=== PATIENT | female | born 2000 | race Hispanic/Latino ===

== ENCOUNTER 2020-02-17 13:45 | Emergency (ER) | payer OTHER ==
[2020-02-17 15:00] LABS: Urine Blood TRACE (NEG); Urine Glucose NEGATIVE (NEG); Urine Protein NEGATIVE (NEG)
[2020-02-17 15:01] LABS: Absolute Lymphocytes (CBC) 1.9 K/uL (0.7-4.9); Basophils % 0.7 % (0-1.3); Hematocrit 39.7 % (36.0-45.0); Lymphocytes % 23.3 % (15.3-44.8); MPV 10.5 fL (7.6-11.3)
[2020-02-17 15:07] LABS: Urine Bacteria NONE SEEN /HPF (<20); Urine Culture Reflex Order NOT NEEDED; Urine RBC <5 /HPF (NONE SEEN)
[2020-02-17 15:31] LABS: BUN Blood Urea Nitrogen 7 mg/dL (7-18); Bicarbonate 24 mmol/L (21-32); Glucose Level 103 mg/dL (74-106); HCG, Quantitative 37031 mIU/mL (1-3); Potassium 3.5 mmol/L (3.5-5.1); Sodium Level 137 mmol/L (136-145)
--- NOTE | 2020-02-17 15:45 | RAD REPORT ---
EXAM DESCRIPTION: US - Transvaginal OB - 02/17/2020 3:26 pm CLINICAL HISTORY: ABD CRAMPING, COMPARISON: No comparisons FINDINGS: Normal sized uterus is present with no myometrial masses. Normal shaped intrauterine gesta tional sac is present with yolk sac and pole. Heart rate is 106 BPM. Gestational sac and crown- rump length measurements yield a 6 week 1 day age. Calculated ROSA MARIA is 10/11/2020. A 15 millimeter sized subchorionic hemorrhage is seen along the inferior margin. This is not regarded as significant at this current size. No blood or fluid in the cul de sac. Cervical canal is closed. Ovaries and adnexa are identified and normal in appearance. IMPRESSION: Single 6 week 1 day IUP with an ROSA MARIA of 10/11/2020. Heart rate is 106 BPM. A 15 millimeter subchorionic hemorrhage is present not regarded as significant . No ovarian or adnexal abnormality.
--- NOTE | 2020-02-17 15:59 | EDPHYS ---
Physician Documentation [facility] Name: Jamar Reece Age: 19 yrs Sex: Female : 2000 Arrival Date: 02/17/2020 Time: 13:48 Bed 13 Private MD: Stefan Carreno B ED Physician Sunny Zhao HPI: 02/16 15:09 This 19 yrs old Female presents to ER via Ambulatory with complaints of kb Vaginal Bleeding, + Preg <12wks. 15:09 The patient presents to the emergency department with vaginal bleeding, described as kb spotting. The estimated gestational age is 6 weeks. course: care: private OB physician, Dr. Carreno, Leakage of Fluid: none appreciated, Ultrasound: the patient has not had an ultrasound, Risk/complications: no obvious risks or complications are appreciated. Previous pregnancies: the patient has never been . Associated signs and symptoms: Pertinent positives: vaginal bleeding, Pertinent negatives: abdominal pain, chest pain, diarrhea, dysuria, fever, frequency, nausea, ruptured membranes, seizure, shortness of breath, vaginal discharge. The patient has not experienced similar symptoms in the past. The patient has been recently seen by a physician: Dr. Carreno last week for first OB appt. 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 - Social history:: Smoking status: Patient denies any tobacco usage or history of. ROS: 15:08 Constitutional: Negative for fever, chills, and weight loss, Cardiovascular: Negative kb for chest pain, palpitations, and edema, Respiratory: Negative for shortness of breath, cough, wheezing, and pleuritic chest pain, Abdomen/GI: Negative for abdominal pain, nausea, vomiting, diarrhea, and constipation, Back: Negative for injury and pain, MS/Extremity: Negative for injury and deformity, Skin: Negative for injury, rash, and discoloration, Neuro: Negative for headache, weakness, numbness, tingling, and seizure. 15:08 : Positive for vaginal bleeding. Exam: 15:08 Constitutional: This is a well developed, well nourished patient who is awake, alert, kb and in no acute distress. Head/Face: Normocephalic, atraumatic. Chest/axilla: Normal chest wall appearance and motion. Nontender with no deformity. No lesions are appreciated. Cardiovascular: Regular rate and rhythm with a normal S1 and S2. No gallops, murmurs, or rubs. Normal PMI, no JVD. No pulse deficits. Respiratory: Lungs have equal breath sounds bilaterally, clear to auscultation and percussion. No rales, rhonchi or wheezes noted. No increased work of breathing, no retractions or nasal flaring. Abdomen/GI: Soft, non-tender, with normal bowel sounds. No distension or tympany. No guarding or rebound. No evidence of tenderness throughout. Skin: Warm, dry with normal turgor. Normal color with no rashes, no lesions, and no evidence of cellulitis. MS/ Extremity: Pulses equal, no cyanosis. Neurovascular intact. Full, normal range of motion. Neuro: Awake and alert, GCS 15, oriented to person, place, time, and situation. Cranial nerves II-XII grossly intact. Motor strength 5/5 in all extremities. Sensory grossly intact. Cerebellar exam normal. Normal gait. Vital Signs: 14:09 BP 125 / 85; Pulse 109; Resp 19 S; Temp 97.2(TE); Pulse Ox 100% on R/A; Weight 45.36 kg ca1 (R); Height 5 ft. 0 in. (152.40 cm) (R); Pain 0/10; 15:28 BP 103 / 68; Pulse 83; Resp 17 S; Pulse Ox 100% on R/A; jd3 14:09 Body Mass Index 19.53 (45.36 kg, 152.40 cm) ca1 MDM: 14:18 Patient medically screened. kb 15:08 Data reviewed: vital signs, nurses notes. Data interpreted: Pulse oximetry: on room air kb is 100 %. Interpretation: normal. 15:57 Counseling: I had a detailed discussion with the patient and/or guardian regarding: the kb historical points, exam findings, and any diagnostic results supporting the discharge/admit diagnosis, lab results, radiology results, the need for outpatient follow up, an OB/Gyne specialist, to return to the emergency department if symptoms worsen or persist or if there are any questions or concerns that arise at home. 02/16 14:35 Order name: Quantitative Hcg; Complete Time: 15:32 kb 02/16 14:35 Order name: Abo/rh Typing; Complete Time: 15:31 kb 02/16 14:35 Order name: Basic Metabolic Panel; Complete Time: 15:32 kb 02/16 14:35 Order name: CBC with Diff; Complete Time: 15:06 kb 02/16 14:35 Order name: Urine Microscopic Only; Complete Time: 15:08 kb 02/16 14:45 Order name: Urine Dipstick--Ancillary (enter results); Complete Time: 15:01 aa5 02/16 13:49 Order name: Urine Test (obtain specimen); Complete Time: 14:27 kb 02/16 13:49 Order name: Urine Dipstick-Ancillary (obtain specimen); Complete Time: 14:27 kb 02/16 14:35 Order name: IV Saline Lock; Complete Time: 14:52 kb 02/16 14:35 Order name: Labs collected and sent; Complete Time: 14:52 kb 02/16 14:35 Order name: NPO; Complete Time: 14:36 kb 02/16 14:35 Order name: US Transvaginal Ob; Complete Time: 15:52 kb 02/16 14:45 Order name: Urine --Ancillary (enter results); Complete Time: 15:01 aa5 Administered Medications: No medications were administered Disposition: 16:49 Co-signature as Attending Physician, Sunny Zhao MD. rn Disposition: 02/17/20 15:58 Discharged to Home. Impression: Threatened . - Condition is Stable. - Discharge Instructions: Vaginal Bleeding During , First Trimester, Subchorionic Hematoma, Threatened Miscarriage, [id number], Pelvic Rest. - Medication Reconciliation Form, Thank You Letter, Antibiotic Education, Prescription Opioid Use form. - Follow up: Emergency Department; When: As needed; Reason: Worsening of condition. Follow up: Stefan Carreno MD; When: 2 - 3 days; Reason: Recheck today's complaints, Continuance of care, Re-evaluation by your physician. Signatures: Dispatcher [employer] ED Radha Cavanaugh, RN SECURITY-C RN SECURITY-Ckb Sunny Zhao MD MD rn Davies, Jonathon, RN RN jd3 Charito Aguila RN RN ca1 Corrections: (The following items were deleted from the chart) 16:05 15:58 02/17/2020 15:58 Discharged to Home. Impression: Threatened . Condition jd3 is Stable. Forms are Medication Reconciliation Form, Thank You Letter, Antibiotic Education, Prescription Opioid Use. Follow up: Emergency Department; When: As needed; Reason: Worsening of condition. Follow up: Stefan Carreno; When: 2 - 3 days; Reason: Recheck today's complaints, Continuance of care, Re-evaluation by your physician. kb
--- NOTE | 2020-02-17 15:59 | ER ---
Nurse's Notes [facility] Name: Jamar Reece Age: 19 yrs Sex: Female : 2000 Arrival Date: 02/17/2020 Time: 13:48 Bed 13 Private MD: Stefan Carreno B Diagnosis: Threatened Presentation: 02/16 14:09 Chief complaint: Patient states: x 6 wks. Spotting started this morning. ca1 Denies cramping. Mother states, "she's all complaining of a yeast infection". Coronavirus screen: Client denies travel out of the [place] in the last 14 days. At this time, the client does not indicate any symptoms associated with coronavirus-19. Ebola Screen: Patient negative for fever greater than or equal to 101.5 degrees Fahrenheit, and additional compatible Ebola Virus Disease symptoms Patient denies exposure to infectious person. Patient denies travel to an Ebola-affected area in the 21 days before illness onset. No symptoms or risks identified at this time. Initial Sepsis Screen: Does the patient meet any 2 criteria? No. Patient's initial sepsis screen is negative. Does the patient have a suspected source of infection? No. Patient's initial sepsis screen is negative. Risk Assessment: Do you want to hurt yourself or someone else? Patient reports no desire to harm self or others. Onset of symptoms was February 17, 2020. 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 - Social history:: Smoking status: Patient denies any tobacco usage or history of. Screenin:31 Abuse screen: Denies threats or abuse. Nutritional screening: No deficits noted. jd3 Tuberculosis screening: No symptoms or risk factors identified. Fall Risk Ambulatory Aid- None/Bed Rest/Nurse Assist (0 pts). Gait- Normal/Bed Rest/Wheelchair (0 pts) Mental Status- Oriented to own ability (0 pts). Total Tellez Fall Scale indicates No Risk (0-24 pts). Assessment: 14:29 Obstetrical Assessment: General assessment: awake and alert, skin warm and dry. jd3 General: Appears in no apparent distress. uncomfortable, Behavior is calm, cooperative, appropriate for age. Pain: Complains of pain in suprapubic area Quality of pain is described as aching. Neuro: Level of Consciousness is awake, alert, obeys commands, Oriented to person, place, time, situation. Cardiovascular: Denies chest pain, Capillary refill < 3 seconds Patient's skin is warm and dry. Respiratory: Airway is patent Respiratory effort is even, unlabored, Respiratory pattern is regular, symmetrical, Denies cough, shortness of breath. GI: Reports nausea, Patient currently denies abdominal pain, diarrhea, vomiting. : Reports urinary frequency, spotting Denies burning with urination. EENT: No signs and/or symptoms were reported regarding the EENT system. Derm: Skin is intact, Skin is dry, Skin is normal, Skin temperature is warm. Musculoskeletal: Circulation, motion, and sensation intact. Range of motion: intact in all extremities. 15:27 Reassessment: Patient appears in no apparent distress at this time. No changes from jd3 previously documented assessment. Patient and/or family updated on plan of care and expected duration. Pain level reassessed. Patient is alert, oriented x 3, equal unlabored respirations, skin warm/dry/pink. 16:05 Reassessment: Patient appears in no apparent distress at this time. Patient and/or jd3 family updated on plan of care and expected duration. Pain level reassessed. Patient is alert, oriented x 3, equal unlabored respirations, skin warm/dry/pink. Vital Signs: 14:09 BP 125 / 85; Pulse 109; Resp 19 S; Temp 97.2(TE); Pulse Ox 100% on R/A; Weight 45.36 kg ca1 (R); Height 5 ft. 0 in. (152.40 cm) (R); Pain 0/10; 15:28 BP 103 / 68; Pulse 83; Resp 17 S; Pulse Ox 100% on R/A; jd3 14:09 Body Mass Index 19.53 (45.36 kg, 152.40 cm) ca1 ED Course: 13:48 Patient arrived in ED. as 13:48 Stefan Carreno MD is Private Physician. as 13:49 Radha Cavanaugh FNP-C is [facility]. kb 13:49 Sunny Zhao MD is Attending Physician. kb 14:11 Triage completed. ca1 14:12 Arm band placed on right wrist. ca1 14:20 Fransisco Heath, RN is Primary Nurse. jd3 14:31 Patient has correct armband on for positive identification. Bed in low position. Call jd3 light in reach. Side rails up X 1. Adult w/ patient. Pulse ox on. NIBP on. 14:38 Radiology exam delayed due to test not completed at this time. aa4 14:56 Inserted saline lock: 20 gauge in right antecubital area, using aseptic technique. jd3 Blood collected. 15:27 US Transvaginal Ob In Process Unspecified. EDMS 15:58 Stefan Carreno MD is Referral Physician. kb 16:04 No provider procedures requiring assistance completed. IV discontinued, intact, jd3 bleeding controlled, No redness/swelling at site. Pressure dressing applied. Administered Medications: No medications were administered Outcome: 15:58 Discharge ordered by . kb 16:05 Discharged to home ambulatory, with family. jd3 16:05 Condition: stable 16:05 Discharge instructions given to patient, family, Instructed on discharge instructions, follow up and referral plans. Demonstrated understanding of instructions, follow-up care. 16:05 Patient left the ED. jd3 Signatures: Dispatcher [employer] EDNE Radha Cavanaugh FNP-C FNP-Ckb Martinez, Amelia as Frazier, Amanda aa4 Fransisco Heath, RN RN jCharito Hopkins RN RN ca1
[2020-02-17 17:37] VITALS: TEMP 97.2; O2SAT 100
[2020-02-17 17:38] VITALS: BP 103/68
== END 2020-02-17 16:05 | disposition home or self-care (01) ==
LOC: ER 13:45
DX: O20.0 Threatened abortion (principal); Z3A.01 Less than 8 weeks gestation of pregnancy
CPT/HCPCS: 36415; 76817; 80048; 81003; 81015; 81025; 84702; 85025; 86900; 86901; 99284

== ENCOUNTER 2020-02-18 15:38 | Emergency (ER) | payer OTHER ==
--- NOTE | 2020-02-18 16:07 | ER ---
Nurse's Notes [facility] Name: Jamar Reece Age: 19 yrs Sex: Female : 2000 Arrival Date: 02/18/2020 Time: 15:41 Bed Waiting Private MD: Diagnosis: Presentation: 02/17 16:03 Chief complaint: Patient states: 6 weeks . Vaginal bleeding has gotten worse ll1 for past two days. Saw here yesterday, bleeding has gotten worse today. Coronavirus screen: Client denies travel out of the [place] in the last 14 days. At this time, the client does not indicate any symptoms associated with coronavirus-19. Ebola Screen: Patient denies travel to an Ebola-affected area in the 21 days before illness onset. Initial Sepsis Screen: Does the patient meet any 2 criteria? HR > 90 bpm. No. Patient's initial sepsis screen is negative. Does the patient have a suspected source of infection? Yes: Other: r/o miscarriage. Risk Assessment: Do you want to hurt yourself or someone else? Patient reports no desire to harm self or others. Onset of symptoms was February 17, 2020. 16:03 Method Of Arrival: Ambulatory ll1 16:03 Acuity: MORGAN 3 ll1 Historical: - Allergies: 16:06 No Known Allergies; ll1 - PSHx: 16:06 None; ll1 - Social history:: Smoking status: Patient denies any tobacco usage or history of. Vital Signs: 16:03 BP 135 / 78; Pulse 104; Resp 16; Temp 98.3; Pulse Ox 99% ; Pain 0/10; ll1 ED Course: 15:41 Patient arrived in ED. mr 16:06 Triage completed. ll1 16:06 Arm band placed on. ll1 Administered Medications: No medications were administered Outcome: 16:06 Patient left the ED. ll1 Signatures: Delaney Jerome Lynsay, RN RN ll1
[2020-02-18 18:44] VITALS: BP 135/78; TEMP 98.3; O2SAT 99
== END 2020-02-18 16:06 | disposition left against medical advice (07) ==
LOC: ER 15:38
DX: Z53.21 Procedure and treatment not carried out due to patient leaving prior to being seen by health care provider (principal)
CPT/HCPCS: 99281

== ENCOUNTER 2020-02-18 17:01 | Emergency (ER) | payer OTHER ==
--- OUTSIDE RECORDS SUMMARY | 2020-02-18 17:03 | XMS REPORT | Continuity of Care Document ---
:2000 Author Organization [facility] t Address [facility] [place] [id number] Care Team Providers Name Role Phone Unavailable Unavailable Unavailable Problems This patient has no known problems. Allergies, Adverse Reactions, Alerts This patient has no known allergies or adverse reactions. Medications This patient has no known medications. Procedures This patient has no known procedures. Results This patient has no known results.
[2020-02-18 20:24] LABS: Absolute Lymphocytes (CBC) 1.9 K/uL (0.7-4.9); Basophils % 0.3 % (0-1.3); Lymphocytes % 21.8 % (15.3-44.8); MPV 10.9 fL (7.6-11.3); RBC Red Blood Cell Count 4.29 M/uL (3.86-4.86)
[2020-02-18 21:00] LABS: BUN Blood Urea Nitrogen 8 mg/dL (7-18); Bicarbonate 26 mmol/L (21-32); Glucose Level 128 mg/dL (74-106); HCG, Quantitative 45880 mIU/mL (1-3); Potassium 3.4 mmol/L (3.5-5.1); Sodium Level 138 mmol/L (136-145)
[2020-02-18 21:14] LABS: Urine Blood 3+ (NEG); Urine Glucose 1+ (NEG); Urine Protein NEGATIVE (NEG)
--- NOTE | 2020-02-18 21:28 | EDPHYS ---
Physician Documentation [facility] Name: Jamar Reece Age: 19 yrs Sex: Female : 2000 Arrival Date: 02/18/2020 Time: 17:04 Bed 25 Private MD: ED Physician Brett Escalante HPI: 02/17 19:59 This 19 yrs old Female presents to ER via Ambulatory with complaints of pm1 Vaginal Bleeding, + Preg <12wks. 19:59 The patient presents to the emergency department with vaginal bleeding, with tissue. pm1 The estimated gestational age is 6 weeks. course: care: private OB physician, Dr. Carreno, the patient's last check was February 18, 2020, Risk/complications: no obvious risks or complications are appreciated. Previous pregnancies: the patient has never been . Associated signs and symptoms: Pertinent negatives: abdominal pain, chest pain, dysuria, fever, shortness of breath. The patient has been recently seen by a physician: with similar presenting complaints, and apparently given a diagnosis of Threatened miscarriage. Patient was seen in the ER yesterday, had IUP ultrasound and lab work. Patient followed up with Dr. Carreno this morning for the same complaint. They are presenting here today due to concern that the transvaginal ultrasound may have increased her vaginal bleeding. They also want to have tissue sample that is at home analyzed by pathology to determine if she has had a miscarriage. They want to bring it to the ER for analysis. Yesterday's imaging showed IUP ultrasound 6 weeks 1 day. 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 - Social history:: Smoking status: Patient denies any tobacco usage or history of. ROS: 19:59 Constitutional: Negative for fever, chills, and weight loss, Cardiovascular: Negative pm1 for chest pain, palpitations, and edema, Respiratory: Negative for shortness of breath, cough, wheezing, and pleuritic chest pain, Abdomen/GI: Negative for abdominal pain, nausea, vomiting, diarrhea, and constipation. 19:59 Skin: Negative for injury, rash, and discoloration, Neuro: Negative for headache, weakness, numbness, tingling, and seizure. 19:59 : Positive for vaginal bleeding, Negative for urinary symptoms. Exam: 19:59 Constitutional: This is a well developed, well nourished patient who is awake, alert, pm1 and in no acute distress. Head/Face: Normocephalic, atraumatic. 19:59 Back: No spinal tenderness. No costovertebral tenderness. Full range of motion. Skin: Warm, dry with normal turgor. Normal color with no rashes, no lesions, and no evidence of cellulitis. MS/ Extremity: Pulses equal, no cyanosis. Neurovascular intact. Full, normal range of motion. 19:59 Cardiovascular: Exam negative for acute changes, Rate: normal, Rhythm: regular, Pulses: no pulse deficits are appreciated. 19:59 Respiratory: Exam negative for acute changes, respiratory distress, shortness of breath. 19:59 Abdomen/GI: Exam negative for acute changes, Inspection: abdomen appears normal, Palpation: abdomen is soft and non-tender, in all quadrants. 19:59 Neuro: Exam negative for acute changes, Orientation: is normal, Mentation: is normal, Motor: is normal, moves all fours. Vital Signs: 17:07 BP 128 / 77; Pulse 95; Resp 16; Temp 98.0; Pulse Ox 100% ; Weight 45.36 kg; Height 4 ll1 ft. 11 in. (149.86 cm); Pain 0/10; 19:15 BP 135 / 77; Pulse 98; Resp 16 S; Pulse Ox 100% on R/A; ca1 20:15 BP 127 / 64; Pulse 98; Resp 16 S; Pulse Ox 100% on R/A; ca1 21:10 BP 110 / 64; Pulse 89; Resp 16 S; Pulse Ox 100% on R/A; ca1 17:07 Body Mass Index 20.20 (45.36 kg, 149.86 cm) ll1 MDM: 19:11 Patient medically screened. sharad 21:26 Data reviewed: vital signs. Data interpreted: Pulse oximetry: on room air is 100 %. pm1 Interpretation: normal. Counseling: I had a detailed discussion with the patient and/or guardian regarding: the historical points, exam findings, and any diagnostic results supporting the discharge/admit diagnosis, lab results, the need for outpatient follow up, an OB/Gyne specialist, repeat 48 hour beta hcg, to return to the emergency department if symptoms worsen or persist or if there are any questions or concerns that arise at home. 02/17 19:21 Order name: Quantitative Hcg; Complete Time: 21:05 pm1 02/17 19:21 Order name: Basic Metabolic Panel; Complete Time: 21:05 pm1 02/17 19:21 Order name: CBC with Diff; Complete Time: 20:45 pm1 02/17 19:21 Order name: IV Saline Lock; Complete Time: 20:45 pm1 02/17 19:59 Order name: Urine Dipstick--Ancillary (enter results); Complete Time: 21:15 mt 02/17 19:59 Order name: Urine --Ancillary (enter results); Complete Time: 21:15 mt 02/17 19:21 Order name: Labs collected and sent; Complete Time: 20:45 pm1 02/17 19:21 Order name: Urine Dipstick-Ancillary (obtain specimen); Complete Time: 20:46 pm1 02/17 21:45 [place] [facility] [place]: Send sample to pathology; Complete Time: 21:46 pm1 Administered Medications: No medications were administered Disposition: 02/18 08:30 Co-signature as Attending Physician, Brett Escalante MD I agree with the assessment and [facility] plan of care. Disposition: 02/18/20 21:28 Discharged to Home. Impression: Threatened . - Condition is Stable. - Discharge Instructions: Threatened Miscarriage, Pelvic Rest. - Work release form, Medication Reconciliation Form, Thank You Letter, Antibiotic Education, Prescription Opioid Use form. - Follow up: Emergency Department; When: As needed; Reason: Worsening of condition. Follow up: Stefan Carreno MD; When: 2 - 3 days; Reason: Recheck today's complaints, Continuance of care, Re-evaluation by your physician. - Problem is new. - Symptoms have improved. Signatures: Dispatcher [employer] EDBrett Ku MD MD cha Marinas, Patrick, FIREFIGHTER FIREFIGHTER pm1 Charito Aguila RN RN ca1 Devon Bonilla RN RN ll1 Corrections: (The following items were deleted from the chart) 02/17 22:01 21:28 02/18/2020 21:28 Discharged to Home. Impression: Threatened . Condition ca1 is Stable. Forms are Medication Reconciliation Form, Thank You Letter, Antibiotic Education, Prescription Opioid Use. Follow up: Emergency Department; When: As needed; Reason: Worsening of condition. Follow up: Stefan Carreno; When: 2 - 3 days; Reason: Recheck today's complaints, Continuance of care, Re-evaluation by your physician. Problem is new. Symptoms have improved. pm1
--- NOTE | 2020-02-18 21:28 | ER ---
Nurse's Notes [facility] Name: Jamar Reece Age: 19 yrs Sex: Female : 2000 Arrival Date: 02/18/2020 Time: 17:04 Bed 25 Private MD: Diagnosis: Threatened Presentation: 02/17 17:07 Chief complaint: Patient states: 6 weeks . G1, P0. Saw Dr. Kay today, and had ll1 pelvic exam. Bleeding got worse with clots after exam. Denies pain. Coronavirus screen: Client denies travel out of the [place] in the last 14 days. At this time, the client does not indicate any symptoms associated with coronavirus-19. Ebola Screen: Patient denies travel to an Ebola-affected area in the 21 days before illness onset. Initial Sepsis Screen: Does the patient meet any 2 criteria? HR > 90 bpm. No. Patient's initial sepsis screen is negative. Does the patient have a suspected source of infection? Yes: Other: vag bleeding. Risk Assessment: Do you want to hurt yourself or someone else? Patient reports no desire to harm self or others. Onset of symptoms was February 16, 2020. 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 - Social history:: Smoking status: Patient denies any tobacco usage or history of. Screenin:15 Abuse screen: Denies threats or abuse. Denies injuries from another. Nutritional ca1 screening: No deficits noted. Tuberculosis screening: No symptoms or risk factors identified. Fall Risk IV access (20 points). Assessment: 19:15 General: Appears in no apparent distress. comfortable, Behavior is calm, cooperative, ca1 appropriate for age. Pain: Denies pain. Neuro: Level of Consciousness is awake, alert, obeys commands, Oriented to person, place, time, situation. Cardiovascular: Heart tones S1 S2 present Capillary refill < 3 seconds Patient's skin is warm and dry. Respiratory: Airway is patent Respiratory effort is even, unlabored, Respiratory pattern is regular, symmetrical, Breath sounds are clear bilaterally. GI: Abdomen is flat, non-distended, Bowel sounds present X 4 quads. Abd is soft and non tender X 4 quads. : No signs and/or symptoms were reported regarding the genitourinary system. Urine is clear. EENT: No signs and/or symptoms were reported regarding the EENT system. Derm: Skin is intact, is healthy with good turgor, Skin is pink, warm \T\ dry. Musculoskeletal: Circulation, motion, and sensation intact. Capillary refill < 3 seconds. 20:15 Reassessment: Patient appears in no apparent distress at this time. Patient and/or ca1 family updated on plan of care and expected duration. Pain level reassessed. Patient is alert, oriented x 3, equal unlabored respirations, skin warm/dry/pink. 21:10 Reassessment: Patient appears in no apparent distress at this time. Patient and/or ca1 family updated on plan of care and expected duration. Pain level reassessed. Patient is alert, oriented x 3, equal unlabored respirations, skin warm/dry/pink. 22:00 Reassessment: Patient appears in no apparent distress at this time. Patient is alert, ca1 oriented x 3, equal unlabored respirations, skin warm/dry/pink. Specimen sent to the lab. Vital Signs: 17:07 BP 128 / 77; Pulse 95; Resp 16; Temp 98.0; Pulse Ox 100% ; Weight 45.36 kg; Height 4 ll1 ft. 11 in. (149.86 cm); Pain 0/10; 19:15 BP 135 / 77; Pulse 98; Resp 16 S; Pulse Ox 100% on R/A; ca1 20:15 BP 127 / 64; Pulse 98; Resp 16 S; Pulse Ox 100% on R/A; ca1 21:10 BP 110 / 64; Pulse 89; Resp 16 S; Pulse Ox 100% on R/A; ca1 17:07 Body Mass Index 20.20 (45.36 kg, 149.86 cm) ll1 ED Course: 17:04 Patient arrived in ED. mr 17:09 Triage completed. ll1 17:09 Arm band placed on. ll1 18:57 Charito Aguila, AUBREY is Primary Nurse. ca1 18:57 Cesar Jarrell NP is PHCP. pm1 18:57 Sunny Zhao MD is Attending Physician. pm1 19:11 Attending Physician role handed off by Sunny Zhao MD [facility] 19:11 Brett Escalante MD is Attending Physician. [facility] 19:15 Patient has correct armband on for positive identification. Placed in gown. Bed in low ca1 position. Call light in reach. Side rails up X 1. Pulse ox on. NIBP on. Warm blanket given. 19:30 Inserted saline lock: 20 gauge in right antecubital area, using aseptic technique. ca1 ,using aseptic technique. by AUBREY Ba Blood collected. 19:30 No provider procedures requiring assistance completed. ca1 21:27 Stefan Carreno MD is Referral Physician. pm1 21:45 IV discontinued, intact, bleeding controlled, No redness/swelling at site. Pressure ca1 dressing applied. Administered Medications: No medications were administered Outcome: 21:28 Discharge ordered by . pm1 22:01 Discharged to home ambulatory, with family. ca1 22:01 Condition: stable 22:01 Discharge instructions given to patient, family, Instructed on discharge instructions, follow up and referral plans. Demonstrated understanding of instructions, follow-up care. 22:01 Patient left the ED. ca1 Signatures: Brett Escalante MD MD cha Rivera, Mary mr MajoCesar quintero, RESIDENTIAL GLAZIER RESIDENTIAL GLAZIER pm1 Charito Aguila RN RN ca1 Devon Bonilla RN RN ll1
[2020-02-19 05:01] VITALS: TEMP 98; O2SAT 100
[2020-02-19 05:12] VITALS: BP 110/64
== END 2020-02-18 22:01 | disposition home or self-care (01) ==
LOC: ER 17:01
DX: O20.0 Threatened abortion (principal); Z3A.01 Less than 8 weeks gestation of pregnancy
CPT/HCPCS: 36415; 80048; 81003; 81025; 84702; 85025; 88305; 99284

== ENCOUNTER 2020-05-09 08:04 | Emergency (ER) | payer OTHER ==
--- OUTSIDE RECORDS SUMMARY | 2020-05-09 08:14 | XMS REPORT | Continuity of Care Document ---
:2000 Author Organization [facility] Address [facility] [place] [id number] Care Team Providers Name Role Phone Unavailable Unavailable Unavailable Problems This patient has no known problems. Allergies, Adverse Reactions, Alerts This patient has no known allergies or adverse reactions. Medications This patient has no known medications. Procedures This patient has no known procedures. Results This patient has no known results.
--- NOTE | 2020-05-09 08:45 | ER ---
Nurse's Notes [facility] Name: Jamar Reece Age: 19 yrs Sex: Female : 2000 Arrival Date: 05/09/2020 Time: 08:06 Bed Waiting [facility] MD: Diagnosis: ED Course: 05/09 08:06 Patient arrived in ED. as 08:44 Chelsey Gu, RN is Primary Nurse. iw Administered Medications: No medications were administered Outcome: 08:44 Eloped from waiting room. iw 08:45 Patient left the ED. iw Signatures: Mallory Lopez as Chelsey Gu, RN RN iw
== END 2020-05-09 08:45 | disposition left against medical advice (07) ==
LOC: ER 08:04
DX: Z02.9 Encounter for administrative examinations, unspecified (principal)

== ENCOUNTER 2020-05-21 21:41 | Emergency (ER) | payer BC, OTHER ==
[2020-05-22 02:13] LABS: Absolute Lymphocytes (CBC) 2.1 K/uL (0.7-4.9); Basophils % 0.4 % (0-1.3); Hematocrit 33.5 % (36.0-45.0); Lymphocytes % 18.5 % (15.3-44.8); MPV 9.6 fL (7.6-11.3); Protime INR 0.93; RBC Red Blood Cell Count 3.58 M/uL (3.86-4.86)
[2020-05-22 02:19] LABS: Barbiturates NEGATIVE (NEGATIVE); Benzodiazepines NEGATIVE (NEGATIVE); Cocaine NEGATIVE (NEGATIVE); METHAMPHETAM NEGATIVE (NEGATIVE); Methadone NEGATIVE (NEGATIVE); Opiates NEGATIVE (NEGATIVE); Phencyclidine NEGATIVE (NEGATIVE); THC Cannibis NEGATIVE (NEGATIVE)
[2020-05-22 02:22] LABS: Urine Blood NEGATIVE (NEG); Urine Glucose NEGATIVE (NEG); Urine Protein NEGATIVE (NEG); Urine Specific Gravity 1.025 (1.005-1.030)
[2020-05-22 02:36] LABS: ALT/SGPT 76 U/L (12-78); AST/SGOT 40 U/L (15-37); Albumin 3.4 g/dL (3.4-5.0); Alkaline Phosphatase 63 U/L (45-117); BUN Blood Urea Nitrogen 6 mg/dL (7-18); Bicarbonate 23 mmol/L (21-32); Bilirubin Direct < 0.1 mg/dL (0-0.2); Bilirubin Total 0.4 mg/dL (0.2-1.0); Glucose Level 75 mg/dL (74-106); Potassium 3.7 mmol/L (3.5-5.1); Sodium Level 139 mmol/L (136-145)
--- NOTE | 2020-05-22 05:08 | ER ---
Nurse's Notes [facility] Name: Jamar Reece Age: 19 yrs Sex: Female : 2000 Arrival Date: 05/21/2020 Time: 21:42 Bed 26 Private MD: Diagnosis: Suicidal ideations; related conditions, unspecified, second trimester Presentation: 05/21 21:47 Chief complaint: Patient states: Suicidal thoughts off/on about every 2 weeks. No ll1 specific plan. 5 months now. Angers easily, fights with boyfriend. Coronavirus screen: Client denies travel out of the [place] in the last 14 days. At this time, the client does not indicate any symptoms associated with coronavirus-19. Ebola Screen: Patient denies travel to an Ebola-affected area in the 21 days before illness onset. Initial Sepsis Screen: Does the patient meet any 2 criteria? No. Patient's initial sepsis screen is negative. Does the patient have a suspected source of infection? No. Patient's initial sepsis screen is negative. Risk Assessment: Do you want to hurt yourself or someone else? Patient reports no desire to harm self or others. Onset of symptoms was May 07, 2020. 21:47 Method Of Arrival: Ambulatory ll1 21:47 Acuity: MORGAN 2 ll1 Historical: - Allergies: 21:51 No Known Allergies; ll1 - PMHx: 21:51 None; ll1 - PSHx: 21:51 None; ll1 - Immunization history:: Flu vaccine is up to date. - Social history:: Smoking status: Patient denies any tobacco usage or history of. - Family history:: not pertinent. - Hospitalizations: : No recent hospitalization is reported. Screenin/18 01:20 Abuse screen: Denies threats or abuse. Nutritional screening: No deficits noted. em Tuberculosis screening: No symptoms or risk factors identified. Fall Risk None identified. Assessment: 01:20 General: Appears in no apparent distress. comfortable, Behavior is calm, cooperative, em appropriate for age. Pain: Denies pain. Neuro: Level of Consciousness is awake, alert, obeys commands, Oriented to person, place, time, situation, Appropriate for age. Cardiovascular: Capillary refill < 3 seconds Patient's skin is warm and dry. Respiratory: Airway is patent Respiratory effort is even, unlabored, Respiratory pattern is regular, symmetrical. GI: Patient currently denies nausea. : Denies discharge, vaginal bleeding. Derm: Skin is intact, is healthy with good turgor, Skin is pink, warm \\T\\ dry. Musculoskeletal: Capillary refill < 3 seconds, Range of motion: intact in all extremities. 03:00 Reassessment: Patient appears in no apparent distress at this time. Patient and/or em family updated on plan of care and expected duration. Pain level reassessed. Patient is alert, oriented x 3, equal unlabored respirations, skin warm/dry/pink. 07:33 Reassessment: Nurse to nurse given to Antonia from [facility]. ea Psych: 01:20 [place] Suicide Severity Screening: In the past month, have you wished you were em or wished you could go to sleep and not wake up? Patient responds "No." "In the past month, have you actually had any thoughts of killing yourself?" Patient responds "no." "In your lifetime, have you ever done anything, started to do anything, or prepared to do anything to end your life?" Patient responds "yes." Patient reports suicidal intent occurred greater than 3 months prior. Subjective: Patient's mood is sad. Objective: Patient is cooperative, Speech is normal, Affect is appropriate. Interventions: Removed personal items and placed in bag. Patient placed in hospital gown. Searched person for dangerous items. Urine collected and sent for urine drug test. Suicide Risk Assessment: Sad Person Scale: Sex of patient: Female: Score 0 points. Age of patient: Score 1 point if patient 15-34. Depression: Score 1 point if signs of depression are present. Previous Attempt: Score 0 point if patient has not previously attempted suicide. Substance Abuse: Score 0 point if patient does not abuse alcohol or drugs. Rational Thinking: Score 0 point if patient has rational thinking. Social Support: Score 0 if social support is present/available. Organized Plan: Score 0 if patient did not have an organized plan in place. Relationship: TOTAL POINTS: If total points are 0-2, proposed clinical action is to send home with follow-up. Safety Checks: Personal items have been removed. Visitors are present. Pt denies substance abuse. Commitment: Patient will be a voluntary commitment. Vital Signs: 05/21 21:47 BP 119 / 68; Pulse 98; Resp 17; Temp 98.4; Pulse Ox 100% ; Weight 47.63 kg; Height 4 ll1 ft. 11 in. (149.86 cm); Pain 0/10; 21:47 Body Mass Index 21.21 (47.63 kg, 149.86 cm) ll1 ED Course: 21:42 Patient arrived in ED. cl3 21:50 Triage completed. ll1 21:51 Arm band placed on. 1 05/22 00:28 Sunny Zhao MD is Attending Physician. rn 00:37 Sarbjit Small, RN is Primary Nurse. em 01:20 Patient has correct armband on for positive identification. Placed in gown. Bed in low em position. Call light in reach. Adult w/ patient. 01:30 Initial lab(s) drawn, by me, sent to lab. Inserted saline lock: 20 gauge in right em antecubital area, using aseptic technique. Blood collected. 02:46 contacted [facility] Crisis line spoke to [facility] to have a screener evaluate patient. 2 07:18 Attending Physician role handed off by Sunny Zhao MD [facility] 07:18 Brett Escalante MD is Attending Physician. [facility] 07:25 Primary Nurse role handed off by Sarbjit Small, RN em1 08:[address] [facility] [address] Bedolla called for conference. em1 08:12 Kathy Amaya, RN is Primary Nurse. ph 08:13 [facility] calls for nurse to nurse conference. em1 09:08 Acceptance secured at [facility]. Pt accepted by Dr. Bedolla; Administrative approval em1 by German Negro. Administered Medications: No medications were administered Outcome: 05:07 ER care complete, transfer ordered by . rn 10:14 Patient left the ED. ph Signatures: Brett Escalante MD MD cha Munoz, Edgar, RN RN Sunny Zhao MD MD rn Martinez, Eric em1 Kathy Amaya, AUBREY BURGOS Tiffany Arroyo RN RN ea [place], MyKena mw2 Juanita Bonilla cl3 Devon Bonilla RN RN 1
--- NOTE | 2020-05-22 05:08 | EDPHYS ---
Physician Documentation [facility] Name: Jamar Reece Age: 19 yrs Sex: Female : 2000 Arrival Date: 05/21/2020 Time: 21:42 Bed 26 Private MD: BRENDA Physician Brett Escalante HPI: 05/22 00:53 This 19 yrs old Female presents to ER via Ambulatory with complaints of rn mobile Problem. 00:53 The patient presents to the emergency department with anxiety, depression, suicide rn ideation. The patient presents to the emergency department with suicide ideation, but the patient has no formulated plan. Onset: The symptoms/episode began/occurred at an unknown time. Associated signs and symptoms: Pertinent positives; depression, suicide ideation, Pertinent negatives: fever, hallucinations, homicidal ideation, substance abuse. Severity of symptoms: At their worst the symptoms were moderate in the emergency department the symptoms have improved. The patient has experienced similar episodes in the past. The patient has not recently seen a physician. Reports having intermittent thoughts of harming herself, told boyfriend "doesn't want to be here", no plan, no previous attempt. No drug or ETOH use. Came before but was worried that might take baby away so left prior to being seen. . Historical: - Allergies: 05/21 21:51 No Known Allergies; ll1 - PMHx: 21:51 None; ll1 - PSHx: 21:51 None; ll1 - Immunization history:: Flu vaccine is up to date. - Social history:: Smoking status: Patient denies any tobacco usage or history of. - Family history:: not pertinent. - Hospitalizations: : No recent hospitalization is reported. ROS: 05/22 00:53 Constitutional: Negative for fever, chills, and weight loss, Neck: Negative for injury, rn pain, and swelling, Cardiovascular: Negative for chest pain, palpitations, and edema, Respiratory: Negative for shortness of breath, cough, wheezing, and pleuritic chest pain, Abdomen/GI: Negative for abdominal pain, nausea, vomiting, diarrhea, and constipation, Back: Negative for injury and pain, : Negative for injury, bleeding, discharge, and swelling, MS/Extremity: Negative for injury and deformity, Skin: Negative for injury, rash, and discoloration, Neuro: Negative for headache, weakness, numbness, tingling, and seizure. Exam: 00:53 Constitutional: This is a well developed, well nourished patient who is awake, alert, rn and in no acute distress, ambulatory to room, emotional Head/Face: Normocephalic, atraumatic. Eyes: Pupils equal round and reactive to light, extra-ocular motions intact. Lids and lashes normal. Conjunctiva and sclera are non-icteric and not injected. Cornea within normal limits. Periorbital areas with no swelling, redness, or edema. Cardiovascular: Regular rate and rhythm. No pulse deficits. Respiratory: No increased work of breathing, no retractions or nasal flaring. MS/ Extremity: Pulses equal, no cyanosis. Neuro: Awake and alert, GCS 15 Psych: Awake, alert, with orientation to person, place and time. Emotional, tearful. Vital Signs: 05/21 21:47 BP 119 / 68; Pulse 98; Resp 17; Temp 98.4; Pulse Ox 100% ; Weight 47.63 kg; Height 4 ll1 ft. 11 in. (149.86 cm); Pain 0/10; 21:47 Body Mass Index 21.21 (47.63 kg, 149.86 cm) ll1 MDM: 05/22 00:28 Patient medically screened. rn 03:21 ED course: contacting [facility] for evaluation.. rn 04:35 ED course: Evaluated by [facility] who recommends inpatient psychiatric transfer, told rn screener that has plan to drive into a wall to kill herself, gets "blackout mad", previous attempt of taking pills. Will initiate transfer. . 05:06 Differential diagnosis: depression, suicidal ideation. Data reviewed: vital signs, rn nurses notes, lab test result(s), and as a result, I will admit patient. Counseling: I had a detailed discussion with the patient and/or guardian regarding: the historical points, exam findings, and any diagnostic results supporting the discharge/admit diagnosis, radiology results, the need to transfer to another facility, [facility] does not immediately have the required specialist. ED course: U/S has been requested for clearance for psychiatric transfer. . 08:06 Data interpreted: cardiac monitor: rate is 98 beats/min, rhythm is. Physician sharad consultation:. Other consultation: dr olson at [facility]. 05/22 00:53 Order name: Acetaminophen; Complete Time: 02:39 05/22 00:53 Order name: Basic Metabolic Panel; Complete Time: 02:39 rn 05/22 00:53 Order name: CBC with Diff; Complete Time: 02:39 rn 05/22 00:53 Order name: ETOH Level; Complete Time: 02:39 rn 05/22 00:53 Order name: Hepatic Function; Complete Time: 02:39 05/22 00:53 Order name: PT-INR; Complete Time: 02:39 05/22 00:53 Order name: Ptt, Activated; Complete Time: 02:39 rn 05/22 00:53 Order name: Salicylate; Complete Time: 02:39 rn 05/22 00:53 Order name: Urine Drug Screen; Complete Time: 02:39 05/22 02:14 Order name: Urine Dipstick--Ancillary (enter results); Complete Time: 02:39 [facility] 05/22 02:14 Order name: Urine --Ancillary (enter results); Complete Time: 02:39 [facility] 05/22 04:29 Order name: COVID-19 : Document "Date of Symptom Onset" if Symptomatic. rn 05/22 06:37 Order name: SARS-COV-2 RT PCR; Complete Time: 07:18 EDGA 05/22 00:53 Order name: Urine Test (obtain specimen); Complete Time: 01:48 05/22 00:53 Order name: EKG; Complete Time: 00:54 05/22 00:53 Order name: EKG - Nurse/Tech; Complete Time: 01:15 05/22 00:53 Order name: IV Saline Lock; Complete Time: 01:48 05/22 00:53 Order name: Labs collected and sent; Complete Time: 01:48 05/22 00:53 Order name: Urine Dipstick-Ancillary (obtain specimen); Complete Time: 01:48 05/22 08:12 Order name: Diet Regular; Complete Time: 08:13 ph Administered Medications: No medications were administered Disposition: 05/22/20 05:07 Transfer ordered to [facility]. Diagnosis are Suicidal ideations, related conditions, unspecified, second trimester. - Reason for transfer: Higher level of care. - Accepting physician is Dr.Chang [facility]. - Condition is Stable. - Problem is an ongoing problem. - Symptoms have improved. Signatures: Dispatcher [employer] EDGA Brett Escalante MD MD cha Nieto, Roman, MD MD rn Hall, Patricia, RN RN Devon Burris RN RN ll1 Corrections: (The following items were deleted from the chart) 05:50 04:30 CORONAVIRUS ordered. EDMS EDMS 06:46 05:09 OB [employer]+US.RAD.BRZ ordered. EDGA EDMS 08:06 05:07 05/22/2020 05:07 Transfer ordered to Psych Facility. Diagnosis is Suicidal sharad ideations. Reason for transfer: Higher level of care. Accepting physician is . Condition is Stable. Problem is an ongoing problem. Symptoms have improved. rn 10:14 08:06 05/22/2020 05:07 Transfer ordered to Psych Facility. Diagnosis is Suicidal ph ideations; related conditions, unspecified, second trimester. Reason for transfer: Higher level of care. Accepting physician is zohra Lucas. Condition is Stable. Problem is an ongoing problem. Symptoms have improved. sharad
[2020-05-22 10:19] VITALS: BP 119/68; TEMP 98.4; O2SAT 100
== END 2020-05-22 10:14 ==
LOC: ER 21:41
DX: O99.342 Other mental disorders complicating pregnancy, second trimester (principal); F32.9 Major depressive disorder, single episode, unspecified; Z20.822 Contact with and (suspected) exposure to COVID-19; Z3A.00 Weeks of gestation of pregnancy not specified
CPT/HCPCS: 85025; 80048; 36415; 80320; 80329 ×2; 81025; 85610; 80076; 80307 ×8; 85730; 81003; 99284; U0003

== ENCOUNTER 2020-09-29 06:39 | Inpatient (IN) | payer BC, OTHER ==
--- OUTSIDE RECORDS SUMMARY | 2020-09-29 07:28 | XMS REPORT | Continuity of Care Document ---
:2000 Author Organization [facility] t Address [address] [place] [address] Care Team Providers Name Role Phone Unavailable Unavailable Unavailable Payers Payer Name Policy Type Policy Number Effective Date Expiration Date S ource Problems This patient has no known problems. Allergies, Adverse Reactions, Alerts Allergy Allergy Status Severity Reaction(s) Onset Inactive Treating Comm ents Source Name Type Date Date Clinician No Known DA Active U [facility] [place] Medications This patient has no known medications. Procedures This patient has no known procedures. Results Test Description Test Time Test Comments Results Result Comments Source DRUGS OF ABUSE SCREEN 2020-06-17 22:52:00 Test Item Value Reference Range Interpretation Comme nts UR COCAINE (test code = COCAU) NEGATIVE NEGATIVE DETECTION CUT OFF: 150 ng/mL UR CANNABINOIDS (test code = CANU) NEGATIVE NEGATIVE DETECTION CUT OFF: 50 ng/mL UR AMPHETAMINE (test code = AMPHU) NEGATIVE NEGATIVE DETECTION CUT OFF: 500 ng/mL UR BARBITURATE QUAL (test code = NEGATIVE NEGATIVE DETECTION CUT OFF: 200 ng/mL BARBQLU) UR BENZODIAZEPINE (test code = NEGATIVE NEGATIVE DETECTION CUT OFF: 150 ng/mL BENZU) UR OPIATES QUAL (test code = NEGATIVE NEGATIVE DETECTION CUT OFF: 100 ng/mL OPIAQLU) UR PHENCYCLIDINE (PCP) (test code = NEGATIVE NEGATIVE DETECTION CUT OFF: 25 ng/mL PHENCU)
[2020-09-29] MEDS ORDERED: PENICILLIN 5 MU in NA CHLORIDE 0.9% 100 ML IV ONE (07:35)
[2020-09-29] MEDS ORDERED: Ringers Lactate 1,000 ML IV PRN (07:43)
[2020-09-29] MEDS ORDERED: MEPERIDINE HCL 25 MG/ML SYR IV PRN (07:43)
[2020-09-29] MEDS ORDERED: METHYLERGONOVINE 0.2MG/ML AMP IM PRN (07:43)
[2020-09-29] MEDS ORDERED: MIDAZOLAM HCL 2 MG/2 ML INJ IV PRN (07:43)
[2020-09-29] MEDS ORDERED: BUTORPHANOL 1 MG/ML INJ IV PRN (07:43)
[2020-09-29] MEDS ORDERED: CARBOPROST TROME 250 MCG/ML IM PRN (07:43)
[2020-09-29] MEDS ORDERED: PROMETHAZINE INJ 25 MG/ML AMP IM PRN (07:43)
[2020-09-29] MEDS ORDERED: OXYTOCIN/LR 20 UNIT/1,000 ML BAG IV SCH ×3 (08:00→16:00)
[2020-09-29] MEDS ORDERED: Ringers Lactate 1,000 ML IV SCH (08:00)
--- NOTE | 2020-09-29 08:13 | PREOPHP ---
Date of Admission: 09/29/2020 History Of Present Illness: Jamar Reece is a 20-year-old primigravida, 38 weeks 3 days, comes in act kat labor, was seen earlier this weekend and sent home, returns, is now 5 cm, sin regularly. Baby looks good on the monitor. Vital signs are all stable. She is Rh positive, immune to Rubella. Positive strep status. Family History: Grandmother with hypertension and uncle with diabetes. Otherwise noncontributory. Past Surgical History: The patient has had no previous surgery. Allergies: SHE IS NOT ALLERGIC TO ANY MEDICINES. Social History: She does not smoke. Physical Examination: HEENT: Clear. Pupils equal, round, and reactive to light and accommodation. Conjunctivae well perf used. No oral, lingual, or buccal lesions. Chest and Lungs: Clear. Heart: Without murmurs, thrills, heaves, or rubs. Breasts: Without masses on previous visits. Abdomen: Term size. Extremities: Clear. Pelvic: As stated. Assessment And Plan: We will admit. Membranes are still intact. We will wait until either membrane s spontaneously rupture or wait at least an hour after the penicillin before we attempt membrane rupt ure. Full labor talk given. The patient is doing quite well right now. May choose to get an epidural lat er. THONG/MAGGI Voice ID: [id number]
[2020-09-29 08:43] LABS: Urine Appearance CLEAR (Clear); Urine Bilirubin NEGATIVE (Negative); Urine Blood TRACE (Negative); Urine Color YELLOW (Yellow); Urine Glucose NEGATIVE (Negative); Urine Microscopic Reflex ORDER UMIC; Urine Protein NEGATIVE (Negative); Urine Urobilinogen 0.2 mg/dL (0.2-1.0)
[2020-09-29] MEDS ORDERED: BUPIVACAINE 0.25% PF 10 ML VIAL IJ PRN (08:49)
[2020-09-29] MEDS ORDERED: ROPIVACAINE HCL 0.2% 20ML AMP IV ONE (08:49)
[2020-09-29] MEDS ORDERED: FENTANYL CITR 100 MCG/2 ML IV ONE (08:49)
[2020-09-29 08:53] LABS: Urine Bacteria <20 /HPF (<20); Urine RBC NONE SEEN /HPF (NONE SEEN)
[2020-09-29] MEDS ORDERED: ROPIVACAINE HCL 0.2% 20ML AMP EP ONE (08:53)
[2020-09-29 09:21] LABS: Absolute Lymphocytes (CBC) 1.3 K/uL (0.7-4.9); Basophils % 0.3 % (0-1.3); Hematocrit 36.9 % (36.0-45.0); Lymphocytes % 12.6 % (15.3-44.8); MPV 10.7 fL (7.6-11.3); RBC Red Blood Cell Count 3.77 M/uL (3.86-4.86)
[2020-09-29] MEDS ORDERED: ROPIVACAINE HCL 100 ML EP ONE (09:25)
[2020-09-29 11:16] VITALS: BMI 23.4
[2020-09-29] MEDS ORDERED: PENICILLIN 2.5 MU in NA CHLORIDE 0.9% 100 ML IV SCH (12:00)
[2020-09-29] MEDS ORDERED: LIDOCAINE 1% MPF 30 ML VIAL ONE (14:04)
--- NOTE | 2020-09-29 15:42 | OP ---
Surgeon: Stefan Carreno MD A 20-year-old primigravida 38 weeks 3 days came in labor. Had epidural anesthesia. Second stage of about an hour. Spontaneous vaginal delivery of an estimated 6-pound male, Apgars 9 and 9. Second-de gree laceration repaired. Simulating episiotomy repaired with 2-0 chromic. Through and through lace ration, right labia minora at the apex repaired with 2-0 chromic and 3-0 chromic interrupted sutures. Schultze delivery of the placenta. Estimated blood loss 400 cc or less. The patient is beta strep positive, was given a dose of penicillin during the labor. We will give her another dose now. Tole rated all procedures well. Final Diagnoses: Term intrauterine at 38 weeks 3 days, spontaneous labor, vaginal delivery , epidural anesthesia. Strep prophylaxis. THONG/MAGGI Voice ID: [id number] Report ID: [id number]
--- NOTE | 2020-09-29 15:42 | PN ---
Patient is now basically completely dilated. She is feeling pressure, will begin to push. Baby look s good on the monitor. We have started some light Pitocin. Anticipate delivery relatively soon. THONG/MAGGI Voice ID: [id number] Report ID: [id number]
[2020-09-29] MEDS ORDERED: DIPHENHYDRAMINE 25 MG TAB/CAP PO PRN (15:54)
[2020-09-29] MEDS ORDERED: BISACODYL 10 MG RECTAL SUPP PR PRN (15:54)
[2020-09-29] MEDS ORDERED: DOCUSATE NA/SENNA CONC 1 TAB PO PRN ×2 (15:54→15:55)
[2020-09-29] MEDS ORDERED: IBUPROFEN 200 MG TAB PO PRN ×2 (15:54→15:55)
[2020-09-29] MEDS ORDERED: ACETAMINOPHEN 500 MG TAB PO PRN ×2 (15:54→15:55)
[2020-09-29] MEDS ORDERED: Oxycodone HCl/Acetaminophen 1 TAB TAB PO PRN ×4 (15:54→15:55)
[2020-09-29] MEDS ORDERED: METHYLERGONOVINE 0.2 MG TAB PO PRN (15:55)
[2020-09-29] MEDS ORDERED: BISACODYL 10 MG RECTAL SUPP RECT PRN (15:55)
[2020-09-29 23:36] LABS: RPR (Rapid Plasma Reagin) NON-REACT (NON-REACT)
--- NOTE | 2020-09-30 09:14 | DS ---
This is a 20-year-old primigravida 38 weeks 3 days came in early labor. Subsequently, delivered a 6 pounds 13-ounce male , Apgars 9 and 9. Epidural anesthesia. Through and through laceration, r ight labia minora upper portion and a second-degree laceration just to the patient's left of the intr oitus, sutured with 2-[address] Schultze delivery of the placenta. Estimated blood los s 350 cc. She was strep positive, given 2 doses of penicillin during the. , afebrile, amb ulating, voiding. Lochia is normal. The patient has no complaints or problems. She is not taking a ny analgesics. Will be dismissed later today. To report back to my office in 6 weeks for followup t o report any temperature elevation of 100 degrees or greater, severe pain, heavy bleeding, or any oth er type of abnormalities. Requests no analgesics on dismissal. No post epidural problems. The walter ent has had her Tdap immunization during the . She was rubella immune. Final Diagnoses: Term intrauterine 38 weeks 3 days, spontaneous labor, vaginal delivery, e pidural anesthesia, penicillin prophylaxis. THONG/MAGGI Voice ID: [id number] Report ID: [id number]
--- NOTE | 2020-09-30 11:08 | PN ---
She has her epidural mass, quite comfortable. She is 9 cm, 100% effaced. Rupture of membranes. Ishan ar fluid. Baby is around 0 station. Anticipate rapid progress soon. Rip quite regularly on her own. THONG/MAGGI Voice ID: [id number] Report ID: [id number]
[2020-09-30 16:11] VITALS: BP 111/73; TEMP 98
[2020-10-01 19:20] LABS: HBsAG Nonreactive (Nonreactive)
== END 2020-09-30 17:30 | disposition home or self-care (01) | DRG 807 ==
LOC: L&D 06:39 → 2ND-WC 07:26
PROVIDERS: ADMIT Specialist; ATTEND Specialist
PROC: 10E0XZZ Delivery of Products of Conception, External Approach (ICD-10-PCS; principal; 2020-09-29)
PROC: 0KQM0ZZ Repair Perineum Muscle, Open Approach (ICD-10-PCS; 2020-09-29)
PROC: 10907ZC Drainage of Amniotic Fluid, Therapeutic from Products of Conception, Via Natural or Artificial Opening (ICD-10-PCS; 2020-09-29)
DX: O99.824 Streptococcus B carrier state complicating childbirth (principal); Z37.0 Single live birth; O70.1 Second degree perineal laceration during delivery; Z3A.38 38 weeks gestation of pregnancy; Z20.822 Contact with and (suspected) exposure to COVID-19
CPT/HCPCS: 36415; 81003; 81015; 85025; 86592; 86901; 87340; J2210; J2540; J2590; J2795; J7120; U0003

== ENCOUNTER 2021-04-20 15:29 | Emergency (ER) | payer BC, OTHER ==
--- OUTSIDE RECORDS SUMMARY | 2021-04-20 15:32 | XMS REPORT | Continuity of Care Document ---
:2000 Author Organization [facility] t Address [address] [place] [address] Care Team Providers Name Role Phone Physician, Primary or Family Admitting Clinician Unavailabl e Payers Payer Name Policy Type Policy Number Effective Date Expiration Date S kylee [facility] [id number] 2015 00:00:00 Problems This patient has no known problems. Allergies, Adverse Reactions, Alerts Allergy Allergy Status Severity Reaction(s) Onset Inactive Treating Comm ents Source Name Type Date Date Clinician No Known DA Active [facility] No Known DA Active U 0 [facility] NO KNOWN Drug Active [facility] ALLERGIE Class [facility] Medications This patient has no known medications. Procedures This patient has no known procedures. Encounters Start End Encounter Admission Attending Care Care Encounter Source Date/Time Date/Time Type Type Clinicians Facility Department ID 2021-01-31 Emergency [facility] [id number] [facility] 05:54:24 [facility] 2020-06-17 Inpatient [facility] [id number] [facility] 21:18:00 [id number] [facility] Results Test Description Test Time Test Comments [...]
--- NOTE | 2021-04-20 17:24 | RAD REPORT ---
EXAM DESCRIPTION: US - Transvaginal OB - 04/20/2021 5:15 pm CLINICAL HISTORY: Abd cramping, ;Vaginal bleeding COMPARISON: OB Complete dated 05/14/2020 TECHNIQUE: Transabdominal sonography performed. Patient declined endovaginal examination. FINDINGS: Retroflexed uterus is present normal in size. No myometrial mass. Tri laminar endometrial stripe is present at 17 mm with no gestational sac or sac remnant identified. Trace amount of fluid o r blood seen near the lower uterine segment cervix junction. Both ovaries are identified show normal blood flow within the stroma. No adnexal abnormality seen. IMPRESSION: No intrauterine gestational sac or sac remnant. Trace amount of fluid or old blood seen near the lower uterine segment cervix junction.
[2021-04-20 18:00] LABS: Absolute Lymphocytes (CBC) 2.2 K/uL (0.7-4.9); Hematocrit 44.6 % (36.0-45.0); Lymphocytes % 25.2 % (15.3-44.8); MPV 9.1 fL (7.6-11.3)
[2021-04-20 18:02] LABS: Urine Blood 2+ (Negative); Urine Glucose Negative (Negative); Urine Protein Negative (Negative); Urine Specific Gravity >=1.030 (1.005-1.030)
[2021-04-20 18:20] LABS: Potassium 3.9 mmol/L (3.5-5.1)
[2021-04-20 18:32] LABS: Urine Specific Gravity/Preg >1.030 (1.005-1.030)
--- NOTE | 2021-04-20 18:43 | EDPHYS ---
Physician Documentation [facility] Name: Jamar Worley Age: 20 yrs Sex: Female : 2000 Arrival Date: 04/20/2021 Time: 15:33 Bed 13 Private MD: ED Physician Brett Escalante HPI: 04/20 17:13 This 20 yrs old Female presents to ER via Ambulatory with complaints of kb Vaginal Bleeding, Abdominal Cramping. 17:13 The patient has not recently seen a physician. kb 17:13 The patient presents to the emergency department with abdominal pain, vaginal bleeding, kb that is light. The estimated gestational age is 6 weeks. course: care: private OB physician, Dr. Carreno. Previous pregnancies: in previous pregnancies patient has had. Associated signs and symptoms: Pertinent positives: abdominal pain, vaginal bleeding. The patient has not experienced similar symptoms in the past. Pt reports abd cramping that started last night, light vaginal bleeding that started this morning. states she doesn't have cramps anymore, but has some pain to right pelvis. 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 - Social history:: Smoking status: Reported history of juuling and/or vaping. ROS: 17:11 Constitutional: Negative for fever, chills, and weight loss. kb 17:11 Abdomen/GI: Positive for abdominal cramps, Negative for nausea, vomiting, and diarrhea. 17:11 : Positive for vaginal bleeding. 17:11 All other systems are negative. Exam: 17:12 Constitutional: This is a well developed, well nourished patient who is awake, alert, kb and in no acute distress. Head/Face: Normocephalic, atraumatic. ENT: Moist Mucous membranes Cardiovascular: Regular rate and rhythm with a normal S1 and S2. No gallops, murmurs, or rubs. No pulse deficits. Respiratory: Respirations even and unlabored. No increased work of breathing. Talking in full sentences Abdomen/GI: Soft, non-tender. No distention Skin: Warm, dry with normal turgor. Normal color. MS/ Extremity: Pulses equal, no cyanosis. Neurovascular intact. Full, normal range of motion. Neuro: Awake and alert, GCS 15, oriented to person, place, time, and situation. Moves all extremities. Normal gait. Psych: Awake, alert, with orientation to person, place and time. Behavior, mood, and affect are within normal limits. Vital Signs: 16:29 BP 137 / 84; Pulse 88; Resp 16; Temp 97.9; Pulse Ox 100% ; Weight 42.64 kg; Height 4 vg1 ft. 11 in. (149.86 cm); Pain 4/10; 16:29 Body Mass Index 18.99 (42.64 kg, 149.86 cm) vg1 MDM: 16:32 Patient medically screened. kb 17:12 Data reviewed: vital signs, nurses notes. Data interpreted: Pulse oximetry: on room air kb is 100 %. Interpretation: normal. 18:43 Counseling: I had a detailed discussion with the patient and/or guardian regarding: the kb historical points, exam findings, and any diagnostic results supporting the discharge/admit diagnosis, lab results, radiology results, the need for outpatient follow up, an OB/Gyne specialist, to return to the emergency department if symptoms worsen or persist or if there are any questions or concerns that arise at home. 04/20 16:32 Order name: Abo/rh Typing; Complete Time: 19:04 kb 04/20 16:32 Order name: Basic Metabolic Panel; Complete Time: 18:21 kb 04/20 16:32 Order name: CBC with Diff; Complete Time: 18:08 kb 04/20 16:32 Order name: Quantitative Hcg; Complete Time: 18:21 kb 04/20 18:02 Order name: Urine Dipstick-Ancillary; Complete Time: 18:08 EDMS 04/20 18:05 Order name: Urine --Ancillary (enter results); Complete Time: 18:39 bd 04/20 16:32 Order name: IV Saline Lock; Complete Time: 17:52 kb 04/20 16:32 Order name: Labs collected and sent; Complete Time: 17:52 kb 04/20 16:32 Order name: NPO; Complete Time: 17:52 kb 04/20 16:32 Order name: Urine Dipstick-Ancillary (obtain specimen); Complete Time: 18:17 kb 04/20 16:32 Order name: Urine Test (obtain specimen); Complete Time: 18:17 kb 04/20 16:32 Order name: US Transvaginal Ob; Complete Time: 17:32 kb Administered Medications: No medications were administered Disposition: 04/21 07:49 Co-signature as Attending Physician, Brett Escalante MD I agree with the assessment and sharad plan of care. Disposition Summary: 04/20/21 18:43 Discharge Ordered Location: Home kb Condition: Stable kb Diagnosis - Threatened kb Followup: kb - With: Emergency Department - When: As needed - Reason: Worsening of condition Followup: kb - With: Private Physician - When: 2 - 3 days - Reason: Recheck today's complaints, Continuance of care, Re-evaluation by your physician Discharge Instructions: - Discharge Summary Sheet kb - Threatened Miscarriage, [id number] kb - Vaginal Bleeding During , First Trimester, [id number] kb Forms: - Medication Reconciliation Form kb - Thank You Letter kb - Antibiotic Education kb - Prescription Opioid Use kb Signatures: Dispatcher [employer] Radha Rodriges, INSTANT POTATO PROCESSOR-C INSTANT POTATO PROCESSOR-Brett Hoff MD MD cha Garcia, Victoria, RN RN vg1
--- NOTE | 2021-04-20 18:43 | ER ---
Nurse's Notes [facility] Name: Jamar Worley Age: 20 yrs Sex: Female : 2000 Arrival Date: 04/20/2021 Time: 15:33 Bed 13 Private MD: Diagnosis: Threatened Presentation: 04/20 16:29 Chief complaint: Patient states: pt is approximately 6 weeks , states 'light vg1 bleeding' that is 'pink/red/brownish' in color with 'small clots'. States RLQ pain. Coronavirus screen: Vaccine status: Patient reports being unvaccinated. Client denies travel out of the [place] in the last 14 days. Ebola Screen: Patient negative for fever greater than or equal to 101.5 degrees Fahrenheit, and additional compatible Ebola Virus Disease symptoms. Initial Sepsis Screen: Does the patient meet any 2 criteria? No. Patient's initial sepsis screen is negative. Does the patient have a suspected source of infection? No. Patient's initial sepsis screen is negative. Risk Assessment: Do you want to hurt yourself or someone else? Patient reports no desire to harm self or others. Onset of symptoms was April 19, 2021. 16:29 Method Of Arrival: Ambulatory vg1 16:29 Acuity: MORGAN 3 vg1 Triage Assessment: 16:32 General: Appears in no apparent distress. uncomfortable, Behavior is calm. Pain: vg1 Complains of pain in right lower quadrant. : Reports vaginal bleeding that is bright red, with clots, light flow. 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 - Social history:: Smoking status: Reported history of juuling and/or vaping. Screenin:55 Abuse screen: Denies threats or abuse. Denies injuries from another. Nutritional ww screening: No deficits noted. Tuberculosis screening: No symptoms or risk factors identified. Fall Risk None identified. Assessment: 18:55 General: Appears in no apparent distress. comfortable, Behavior is calm, cooperative, ww appropriate for age. Pain: Denies pain. Neuro: Level of Consciousness is awake, alert, obeys commands, Oriented to person, place, time, situation. Cardiovascular: No deficits noted. Denies chest pain, shortness of breath. Respiratory: No deficits noted. Airway is patent Respiratory effort is even, unlabored, Respiratory pattern is regular, symmetrical. GI: No deficits noted. No signs and/or symptoms were reported involving the gastrointestinal system. : Urine is clear, Reports vaginal bleeding that is with clots. EENT: No deficits noted. No signs and/or symptoms were reported regarding the EENT system. Derm: No deficits noted. No signs and/or symptoms reported regarding the dermatologic system. Skin is intact, is healthy with good turgor, Skin is pink, warm \T\ dry. Musculoskeletal: No deficits noted. No signs and/or symptoms reported regarding the musculoskeletal system. Circulation, motion, and sensation intact. Vital Signs: 16:29 BP 137 / 84; Pulse 88; Resp 16; Temp 97.9; Pulse Ox 100% ; Weight 42.64 kg; Height 4 vg1 ft. 11 in. (149.86 cm); Pain 4/10; 16:29 Body Mass Index 18.99 (42.64 kg, 149.86 cm) vg1 ED Course: 15:33 Patient arrived in ED. ja2 16:01 Radha Cavanaugh FNP-C is [facility]. kb 16:01 Brett Escalante MD is Attending Physician. kb 16:32 Triage completed. vg1 16:32 Arm band placed on. vg1 17:15 Transvaginal Ob In Process Unspecified. EDMS 17:20 Harini Alvarado, RN is Primary Nurse. ww 17:52 Initial lab(s) drawn, by me, sent to lab. Inserted saline lock: 22 gauge in right vg1 antecubital area, using aseptic technique. Blood collected. 18:55 Patient has correct armband on for positive identification. Placed in gown. Bed in low ww position. Call light in reach. Side rails up X 1. Adult w/ patient. 18:55 No provider procedures requiring assistance completed. intact, bleeding controlled, No ww redness/swelling at site. Pressure dressing applied. Administered Medications: No medications were administered Outcome: 18:43 Discharge ordered by . randee 19:12 Discharged to home ambulatory, with family. suresh 19:12 Condition: stable 19:12 Discharge instructions given to patient, family, Instructed on discharge instructions, follow up and referral plans. safe sex practices, safety practices, Demonstrated understanding of instructions, follow-up care. 19:12 Patient left the ED. ww Signatures: Dispatcher [employer] Radha Rodriges, CONSTRUCTION PROJECT COORDINATOR-C EDIE-Minoo Arizmendi, RN RN vg1 Emily Hernandez Whitney, RN RN ww
[2021-04-20 19:26] VITALS: BP 137/84; TEMP 97.9; O2SAT 100
== END 2021-04-20 19:12 | disposition home or self-care (01) ==
LOC: ER 15:29
DX: O20.0 Threatened abortion (principal)
CPT/HCPCS: 36415; 76817; 80048; 81003; 81025; 84702; 85025; 86900; 86901; 99283

== ENCOUNTER 2022-04-16 06:50 | Inpatient (IN) | payer BC, OTHER ==
--- OUTSIDE RECORDS SUMMARY | 2022-04-16 08:00 | XMS REPORT | Continuity of Care Document ---
:2000 Author Organization [facility] t Address [address] [place] [address] Care Team Providers Name Role Phone PCP, PATIENT DOES NOT HAVE A Primary Care Physician Unavaila OLYA Morley Attending Clinician Unavailable OLYA FUNES Attending Clinician Unavailable Wade Torres MD Attending Clinician Marine Patton PA-C Attending Clinician Tati, Jimmy Lab Main Attending Clinician Unavailable WADE TORRES Attending Clinician Unavailable Doctor Unassigned, [place] Attending Clinician Unavailable Physician, No Primary or Family Admitting Clinician Unavaila juan Payers Payer Name Policy Type Policy Number Effective Date Expiration Date Sena [facility] [id number] 2015 00:00:00 Problems Condition Condition Condition Status Onset Resolution Last Treating Co mments Source Name Details Category Date Date Treatment Clinician Date High risk High risk Disease Active Uni vers , , 6 [place] [facility] History of History of Disease Active U nivers anxiety anxiety 09-10 ity of 00:00: [place] [facility] History of History of Disease Active U nivers depression depression 09-10 it y of 00:00: Medical Branch History of History of Disease Active U nivers bipolar bipolar 09-10 ity of disorder disorder 00:00: [place] 00 [facility] Positive Positive Disease Active Unive rs 09-04 ity of test test 00:00: [address] Allergies, Adverse Reactions, Alerts Allergy Allergy Status Severity Reaction(s) Onset Inactive Treating Comm ents Source Name Type Date Date Clinician No Known DA Active [facility] No Known DA Active U [facility] Allergie 3-16 [facility] NO KNOWN Drug Active Univers ALLERGIE Class ity of S [facility] Social History Social Habit Start Date Stop Date Quantity Comments Source ASSERTION 2021-08-05 [facility] 00:00:00 [facility] Alcohol intake 2021-10-23 2021-10-23 Ex-drinker [facility] 00:00:00 00:00:00 (finding) [facility] Exposure to 2021-09-28 2021-10-08 Not sure [facility] SARS-CoV-2 00:00:00 09:55:00 [facility] (event) [place] Tobacco use and 2021-09-04 2021-09-04 Smokeless tobacco Un iversity of exposure 00:00:00 00:00:00 non-user [facility] Sex Assigned At 2000 2000 Universit y of 00:00:00 00:00:00 [facility] Smoking Status Start Date Stop Date Source Never smoked tobacco [facility] Medications Ordered Filled Start Stop Current Ordering Indication Dosage Frequency Signature Comments Components Source Medication Medication Date Date Medication? Clinician (SIG) Name Name Yes Take by Univer s 25/iron 10-23 mouth. ity of fum/folic/d 13:58: [place] 04 Medical (-1 Branch ORAL) miconazole 2021- No [id number] 100mg Insert 1 Univers 100 mg 10-09 Suppositor ity of vaginal 00:00: 04:59 y into [place] suppository 00 :00 vagina at [facility] bedtime Branch for 7 days. miconazole 2021- No [id number] 100mg Insert 1 Univers 100 mg 7-08 07-16 Suppositor ity of vaginal 00:00: 04:59 y into [place] suppository 00 :00 vagina at [facility] bedtime Branch for 7 days. metroNIDAZO 2021- No [id number] 500mg Take 1 Univers LE (FLAGYL) 10-0815 tablet by it y of 500 mg 00:00: 04:59 mouth 2 [place] tablet 00 :00 (two) Medical times Branch daily for 7 days. metroNIDAZO 2021- No [id number] 500mg Take 1 Univers LE (FLAGYL) 10-0815 tablet by it y of 500 mg 00:00: 04:59 mouth 2 [place] tablet 00 :00 (two) Medical times Branch daily for 7 days. metroNIDAZO 2021- No [id number] 500mg Take 1 Univers LE (FLAGYL) 10-0815 tablet by it y of 500 mg 00:00: 04:59 mouth 2 [place] tablet 00 :00 (two) Medical times Branch daily for 7 days. metroNIDAZO 2021- No [id number] 500mg Take 1 Univers LE (FLAGYL) 10-0815 tablet by it y of 500 mg 00:00: 04:59 mouth 2 [place] tablet 00 :00 (two) Medical times Branch daily for 7 days. metroNIDAZO 2021- No [id number] 500mg Take 1 Univers LE (FLAGYL) 10-0815 tablet by it y of 500 mg 00:00: 04:59 mouth 2 [place] tablet 00 :00 (two) Medical times Branch daily for 7 days. metroNIDAZO 2021- No [id number] 500mg Take 1 Univers LE (FLAGYL) 10-0815 tablet by it y of 500 mg 00:00: 04:59 mouth 2 [place] tablet 00 :00 (two) Medical times Branch daily for 7 days. Yes [id number] 1{tbl} Take 1 U nivers vit 6-13 tablet by ity of no.130-iron 00:00: mouth [place] -folic 00 daily. Medical ( Branch VITAMIN) Yes [id number] 1{tbl} Take 1 U nivers vit 6-13 tablet by ity of no.130-iron 00:00: mouth [place] -folic 00 daily. Medical ( Branch VITAMIN) Yes [id number] 1{tbl} Take 1 U nivers vit 6-13 tablet by ity of no.130-iron 00:00: mouth [place] -folic 00 daily. Medical ( Branch VITAMIN) Yes [id number] 1{tbl} Take 1 U nivers vit 6-13 tablet by ity of no.130-iron 00:00: mouth [place] -folic 00 daily. Medical ( Branch VITAMIN) Yes [id number] 1{tbl} Take 1 U nivers vit 6-13 tablet by ity of no.130-iron 00:00: mouth [place] -folic 00 daily. Medical ( Branch VITAMIN) Yes [id number] 1{tbl} Take 1 U nivers vit 6-13 tablet by ity of no.130-iron 00:00: mouth [place] -folic 00 daily. Medical ( Branch VITAMIN) Yes [id number] 1{tbl} Take 1 U nivers vit 6-13 tablet by ity of no.130-iron 00:00: mouth [place] -folic 00 daily. Medical ( Branch VITAMIN) Yes [id number] 1{tbl} Take 1 U nivers vit 6-13 tablet by ity of no.130-iron 00:00: mouth [place] -folic 00 daily. Medical ( Branch VITAMIN) Yes Take by Univer s 25/iron 6-09 mouth. ity of fum/folic/d 09:17: [place] [id number] Medical (-1 Branch ORAL) Yes Take by Univer s 25/iron 6-09 mouth. ity of fum/folic/d 09:17: [place] [id number] Medical (-1 Branch ORAL) Yes Take by Univer s 25/iron 6-09 mouth. ity of fum/folic/d 09:17: [place] [address] Medical (-1 Branch ORAL) Yes Take by Univer s 25/iron 6-09 mouth. ity of fum/folic/d 09:17: [place] [address] Medical (-1 Branch ORAL) Yes Take by Univer s 25/iron 6-09 mouth. ity of fum/folic/d 09:17: [place] [address] Medical (-1 Branch ORAL) Yes Take by Univer s 25/iron 6-09 mouth. ity of fum/folic/d 09:17: [place] [address] Medical (-1 Branch ORAL) Yes Take by Univer s 25/iron 6-09 mouth. ity of fum/folic/d 09:17: [place] [address] Medical (-1 Branch ORAL) doxylamine- Yes [id number] 1{tbl} Take 1 Univers pyridoxine, 6-09 tablet by ity of vit B6, 00:00: mouth [place] ([place]) 00 SEE-INSTRU Med ical 10-10 mg CTIONS. Branch per tablet doxylamine- Yes [id number] 1{tbl} Take 1 Univers pyridoxine, 6-09 tablet by ity of vit B6, 00:00: mouth [place] ([place]) 00 SEE-INSTRU Med ical 10-10 mg CTIONS. Branch per tablet doxylamine- Yes [id number] 1{tbl} Take 1 Univers pyridoxine, 6-09 tablet by ity of vit B6, 00:00: mouth [place] ([place]) 00 SEE-INSTRU Med ical 10-10 mg CTIONS. Branch per tablet doxylamine- Yes [id number] 1{tbl} Take 1 Univers pyridoxine, 6-09 tablet by ity of vit B6, 00:00: mouth [place] ([place]) 00 SEE-INSTRU Med ical 10-10 mg CTIONS. Branch per tablet doxylamine- Yes [id number] 1{tbl} Take 1 Univers pyridoxine, 6-09 tablet by ity of vit B6, 00:00: mouth [place] ([place]) 00 SEE-INSTRU Med ical 10-10 mg CTIONS. Branch per tablet doxylamine- Yes [id number] 1{tbl} Take 1 Univers pyridoxine, 6-09 tablet by ity of vit B6, 00:00: mouth [place] ([place]) 00 SEE-INSTRU Med ical 10-10 mg CTIONS. Branch per tablet doxylamine- 2021-0 Yes [id number] 1{tbl} Take 1 Univers pyridoxine, 6-09 tablet by ity of vit B6, 00:00: mouth [place] ([place]) 00 SEE-INSTRU Med ical 10-10 mg CTIONS. Branch per tablet doxylamine- 0 Yes [id number] 1{tbl} Take 1 Univers pyridoxine, 6-09 tablet by ity of vit B6, 00:00: mouth [place] ([place]) 00 SEE-INSTRU Med ical 10-10 mg CTIONS. Branch per tablet Immunizations Ordered Filled Immunization Date Status Comments [facility] e Immunization Name Name HPV Unspecified 2015-09-11 Completed Universit y of 00:00:00 [place] [facility] HPV Unspecified 2015-09-11 Completed Universit y of 00:00:00 [place] [facility] HPV Unspecified 2015-09-11 Completed Universit y of 00:00:00 [place] [facility] HPV Unspecified 2015-09-11 Completed Universit y of 00:00:00 [place] [facility] HPV Unspecified 2015-09-11 Completed Universit y of 00:00:00 [place] [facility] HPV Unspecified 2015-09-11 Completed Universit y of 00:00:00 [place] [facility] HPV Unspecified 2015-09-11 Completed Universit y of 00:00:00 [place] [facility] HPV Unspecified 2015-09-11 Completed Universit y of 00:00:00 [facility] Vital Signs Vital Name Observation Time Observation Value Comments Source Systolic blood 2021-10-08 15:35:00 114 mm[Hg[facility] Diastolic blood 2021-10-08 15:35:00 75 mm[Hg] [facility] Heart rate 2021-10-08 15:35:00 107 /min [facility] Body temperature 2021-10-08 15:35:00 36.94 Y[facility] Respiratory rate 2021-10-08 15:35:00 18 /min [facility] Body height 2021-10-08 15:35:00 149.9 cm [facility] Body weight 2021-10-08 15:35:00 44.815 kg [facility] BMI 2021-10-08 15:35:00 19.96 kg/m2 Universi ty of [facility] Procedures Procedure Date / Time Performed Performing Clinician Sourc e POCT URINALYSIS W/O 2021-10-08 00:00:00 Marine Patton [facility] ty [facility] SPECIFIC GRAVITY [facility] Encounters Start End Encounter Admission Attending Care Care Encounter Source Date/Time Date/Time Type Type Clinicians Facility Department ID 2021-01-31 Emergency [facility] [id number] Univers 05:54:24 ity [facility] 2020-06-17 Inpatient [facility] [id number] [facility] 2021-11-06 2021-11-06 Outpatient R OLYA FUNES [facility] B [id number] Univers 09:30:00 09:30:00 [id number] 2021-11-03 2021-11-03 Outpatient R OLYA FUNES [facility] B [id number] Univers 11:00:00 11:00:00 [id number] 2021-10-26 2021-10-26 Telephone Wade Torres [facility] [id number] Univers 00:00:00 00:00:00 Emerson ECKERT [id number] i ty of [id number] [id number] Nv dic[address] 2021-10-22 2021-10-22 Telephone Wade Torres [facility] [id number] Univers 00:00:00 00:00:00 Emerson ECKERT [id number] i ty [id number] [phone] Nv dical NAL [address] [place] [address] 2021-10-15 2021-10-15 Telephone Abdi [facility] [id number] Univers 00:00:00 00:00:00 Marine ECKERT [id number] i ty of [id number] [id number] Nv dical NAL 134 [facility] 2021-10-09 2021-10-09 Case Reviewer Tati, Adc [facility] Main [place] 1.2.8 [id number] Univers 08:45:00 09:00:00 Visit Wade Torres [id number] [facility] [id number] [id number] Nv dical NAL 353 [facility] 2021-10-09 2021-10-09 Outpatient R MELISSA [facility] [id number] Univers 08:45:00 08:45:00 ity of [facility] 2021-10-09 2021-10-09 Outpatient R MELISSA [facility] [id number] Univers 08:45:00 08:45:00 ity of [facility] 2021-10-09 2021-10-09 Telephone Melissa [facility] [id number] Univers 00:00:00 00:00:00 Emerson ECKERT [id number] i ty [facility] [id number] [id number] Nv dicsd NAL 134 [facility] 2021-10-09 2021-10-09 Case RICHARD Patton [id number] Univers 00:00:00 00:00:00 Management Marine PEDIATRIC [id number] ity [id number] [id number] [place] [address] Branch [facility] 2021-10-08 2021-10-08 Case Reviewer Tati, Adc [facility] Main [place] 1.2.8 40.114 [id number] Univers 11:45:00 12:00:00 Visit Wade Torres [id number] [facility]y [facility] [id number] [id number] Nv dical NAL 353 [facility] 2021-10-08 2021-10-08 Outpatient R MELISSA WADE [facility] [id number] Univers 11:45:00 11:45:00 ity of [facility] 2021-10-08 2021-10-08 Outpatient R WADE TORRES [facility] [id number] Univers 09:45:00 11:27:27 ity of [facility] 2021-10-08 2021-10-08 Routine Wade Torres [place] [id number] Univers 09:45:00 11:27:27 Cam [place] [id number] ity of Visit [place] [id number] [phone] Nv dic[address] 2021-10-08 2021-10-08 Outpatient R WADE TORRES [facility] [id number] Univers 09:45:00 11:27:27 ity of [facility] 2021-10-08 2021-10-08 Orders Doctor LELIA [id number] Univers 00:00:00 00:00:00 Only Unassigned, HARR[place] [id number] ity of [place] [facility] [id number] Isai as [id number] [address] 2021-09-14 2021-09-14 Telephone Wade Torres [facility] [id number] Univers 00:00:00 00:00:00 Cam [place] [id number] i ty of [place] [id number] [id number] Nv dical NAL [address] [place] [address] 2021-09-10 2021-09-10 Outpatient R WADE TORRES [facility] [id number] Univers 08:30:00 09:55:48 ity of [facility] 2021-09-10 2021-09-10 Outpatient R WADE TORRES [facility] [id number] Univers 08:30:00 09:55:48 ity of [facility] 2021-09-10 2021-09-10 Initial Wade Torres [facility] [id number] Univers 08:30:00 09:55:48 Cam [place] [id number] ity of Visit [place] [id number] PROFESS [id number] Nv dical [address] 2021-09-10 2021-09-10 Outpatient R WADE TORRES [facility] [id number] Univers 08:30:00 08:30:00 ity [facility] 2021-09-04 2021-09-04 Outpatient R OLYA FUNES [facility] B [id number] Univers 08:30:00 09:23:29 TRIALBERTOLYA RUIZ jd [facility] 2021-09-04 2021-09-04 Outpatient R OLYA FUNES [facility] B [id number] Univers 08:30:00 09:23:29 OLYA FUNES [facility] 2021-09-04 2021-09-04 Outpatient R OLYA FUNES [facility] B [id number] Univers 08:30:00 09:23:29 SILKEOLYA RUIZ [facility] 2021-09-04 2021-09-04 Office Conchiscassyportillo [facility] [id number] Univers 08:30:00 09:23:29 Visit Olya OBRIEN [id number] it y of WOMEN'S [id number] [facility] [id number] [address] Results Test Description Test Time Test Comments Results Result Comments Source POCT URINALYSIS W/O SPECIFIC GRAVITY 2021-10-08 15:31:00 Test Item Value Reference Range Interpretation Comme nts POCT PH U (test code = 3254) n/a 5-8 POCT U LEUK EST (test code = 3263) n/a Negative - Negative POCT U NIT (test code = 3262) n/a Negative - Negative POCT U PROT (test code = 3259) negative Negative - Negative POCT U GLU (test code = 3256) negative Negative - Negative POCT U KETONE (test code = 3258) n/a Negative - Negative POCT U BLD (test code = 3257) n/a Negative - Negative [facility] [id number] 22:52:00 Test Item Value Reference Range Interpretation Comments UR COCAINE (test code = NEGATIVE NEGATIVE DETE CTION CUT OFF: COCAU) 150 ng/mL UR CANNABINOIDS (test NEGATIVE NEGATIVE DETECT ION CUT OFF: code = CANU) 50 ng/mL UR AMPHETAMINE (test code NEGATIVE NEGATIVE DE TECTION CUT OFF: = AMPHU) 500 ng/mL UR BARBITURATE QUAL (test NEGATIVE NEGATIVE DE TECTION CUT OFF: code = BARBQLU) 200 ng/mL UR BENZODIAZEPINE (test NEGATIVE NEGATIVE DETE CTION CUT OFF: code = BENZU) 150 ng/mL UR OPIATES QUAL (test NEGATIVE NEGATIVE DETECT ION CUT OFF: code = OPIAQLU) 100 ng/mL UR PHENCYCLIDINE (PCP) NEGATIVE NEGATIVE DETEC TION CUT OFF: (test code = PHENCU) 25 ng/m L
[2022-04-16] MEDS ORDERED: BUTORPHANOL 1 MG/ML INJ IV PRN (08:07)
[2022-04-16] MEDS ORDERED: METHYLERGONOVINE 0.2MG/ML AMP IM PRN (08:07)
[2022-04-16] MEDS ORDERED: PROMETHAZINE INJ 25 MG/ML AMP IM PRN (08:07)
[2022-04-16] MEDS ORDERED: Ringers Lactate 1,000 ML IV PRN (08:07)
[2022-04-16] MEDS ORDERED: MEPERIDINE HCL 25 MG/ML SYR IV PRN (08:07)
[2022-04-16] MEDS ORDERED: CARBOPROST TROME 250 MCG/ML IM PRN (08:07)
[2022-04-16] MEDS ORDERED: FENTANYL/BUPIVACAINE/NS/PF 200 MCG/100 ML BAG EP PRN (08:13)
[2022-04-16] MEDS ORDERED: BUPIVACAINE 0.25% PF 10 ML VIAL IJ PRN (08:13)
[2022-04-16] MEDS ORDERED: FENTANYL CITR 100 MCG/2 ML IV ONE (08:13)
[2022-04-16 08:57] VITALS: BMI 24.8
[2022-04-16] MEDS ORDERED: Ringers Lactate 1,000 ML IV SCH (09:00)
[2022-04-16] MEDS ORDERED: OXYTOCIN/LR 20 UNIT/1,000 ML BAG IV SCH (09:00)
[2022-04-16] MEDS ORDERED: LIDOCAINE 1% MPF 30 ML VIAL ONE (09:18)
[2022-04-16 09:36] LABS: Absolute Lymphocytes (CBC) 1.5 K/uL (0.7-4.9); Lymphocytes % 13.2 % (15.3-44.8); MCV 97.6 fL (80-100); MPV 9.6 fL (7.6-11.3)
[2022-04-16 09:43] LABS: Specific Gravity 1.005 (1.005-1.030); Urine Bilirubin NEGATIVE (Negative); Urine Blood Negative (Negative); Urine Clarity Clear (Clear); Urine Color Colorless (Yellow); Urine Glucose NEGATIVE (Negative); Urine Protein NEGATIVE (Negative); Urine Urobilinogen Normal (Normal)
[2022-04-16 10:14] LABS: Hepatitis B surface AG Interp. Nonreactive (Nonreactive)
[2022-04-16 14:59] LABS: SARS-COV-2 RT PCR NEGATIVE (NEGATIVE)
[2022-04-16] MEDS ORDERED: FENTANYL CITR 100 MCG/2 ML ONE (17:36)
[2022-04-16 20:56] LABS: RPR (Rapid Plasma Reagin) NON-REACT (NON-REACT)
[2022-04-16] MEDS ORDERED: Oxycodone HCl/Acetaminophen 1 TAB TAB PO PRN (22:14)
[2022-04-16] MEDS ORDERED: ACETAMINOPHEN 500 MG TAB PO PRN (22:14)
--- NOTE | 2022-04-16 22:43 | DN ---
Date of Procedure: 04/16/2022 Surgeon: Richie Jiménez Covering Physician: Dr. Richie Jiménez is the covering physician for Dr. Carreno. Final Diagnoses: 1.Intrauterine 38 weeks and 4 days of gestation, delivered. 2.Single live female. 3.Spontaneous labor. 4.Normal vaginal delivery. 5.Prior history of right labial minora tear, improperly healed. Indications: Jamar is a 21-year-old female G3, P1 at 38 weeks and 4 days of gestation compl aining of labor since began on the morning of 04/16/2022 with irregular contractions. Denies rupture of membranes or vaginal bleeding. Procedure In Detail: She was admitted in the labor room 4-5 cm with irregular contractions. She lab ored during the next few hours and she received artificial rupture of membrane showing clear fluid. Rupture of membrane time was 1458 hours. She received epidural, regional anesthesia and she was comf ortable. Pitocin was also given for augmentation of labor. Her cervix progressed. Maternal c ondition is stable and she reached complete cervical dilatation at approximately 1800 hours. At that time, she felt a tremendous amount of pressure and had urge to push, however, her vulva began with s wallowing at this time with very poor results with pushing. Therefore, I asked her to rest and let t he baby's head labor down for a while. She rested for almost an hour. At approximately 1700 hours, she was resumed with pushing. At this time, is much better. Her legs were placed up on stirrups. V aginal area prepped and washed by using diluted Betadine solution. Then, she was draped in a sterile fashion. With a midline episiotomy, baby presented WILTON and delivered OA position followed by esteban silva of the baby's nose and mouth with the bulb, delivery of the right shoulder followed by the left shoulder, which is posterior body and delivery completed on 1918 hours. Cord was clamped and cut. B glo passed down to the nursing staff. Cord blood obtained. Placenta delivered intact few minutes la Jamel harding presentation. Aggressive fundal massage was done and the Pitocin infusion begun in the IV. A midline episiotomy showing no extension and that was repaired with 2-0 chromic suture in a con tinuous running fashion. The repair was satisfactory; however, patient requested repair for the righ t labia minora, which was previously torn and healed and lips has a defect of a "V shape i n pattern." Therefore, I used a Rodas scissors to trend the edge of the heel tissue and cut tissue to e nsure a very healthy condition and repairable. Therefore, I placed a 2-0 chromic suture in the inter rupted fashion throughout the anterior lip, followed by the posterior aspect of the lip. The lips re approximated nicely. Patient was well informed prior to the procedure that there was a 50% chance th is may not heal properly. It may be torn again. Patient understood the risk and understood the labi al plasty. The labial plasty was assessed and with a total amount of bleeding of 450 cc. A well bab y girl delivered. scores of 9 and 9. Weight 6 pounds 15 ounces. Mom is Rh positive, O positi ve, was GBS negative. Maternal H and H were stable. BW/MODL Voice ID: [id number] Report ID: [id number]
[2022-04-17 06:24] LABS: Hematocrit 31.8 % (36.0-45.0)
[2022-04-17] MEDS: IBUPROFEN 200 MG TAB PO PRN ×3 (07:18→22:41)
[2022-04-18 10:42] VITALS: BP 110/68; TEMP 97.7
--- NOTE | 2022-04-18 15:11 | DS ---
Date of Discharge: 04/18/2022 Dr. Jiménez, the attending physician covering for Dr. Carreno. Discharge Diagnoses: 1.Intrauterine 38 weeks and 4 days of gestation deliver. 2.Normal vaginal delivery. 3.Single live . 4.Prior history of external genitalia injury from previous childbirth. Procedures Preformed: 1.On 04/16/2022, normal vaginal delivery. 2.Right labia minora labiaplasty. Hospital Course: Jamar Worley is a 21-year-old, G3, P1, female, 38 weeks and 4 days of ge station, due date 04/26/2022, came to the hospital with spontaneous labor. Her labor was augmented a nd also she had artificial rupture of membranes showing clear fluid. She also had an epidural region al anesthesia. Her labor was uncomplicated and she had a normal delivery during the evening, time 19 18 hours. She gave to a female baby with scores of 8 and 9 and weight 6 pounds 15 ounces . With a prior childbirth, she had a right-sided labia minora care where a labiaplasty was done and also repair of the midline episiotomy. Otherwise, was normal and unremarkable. Next day postp artum, she was doing quite well and she was discharged on 04/18, morning, in good and stable conditio ns. Instructions given to her at the bedside. The patient understood. Disposition: Home. Prescription: 1.Tylenol No.3, #20, 1 to 2 tabs p.o. q.4-6 hours p.r.n. for pain, no refills. 2.Ibuprofen 800 mg, #20, 1 tab p.o. t.i.d. p.r.n. for pain, no refills. Diet: The patient may have a regular diet. Followup: Call Dr. Carreno's office, followup 4-6 weeks. Discharged home in good and stable condition. BW/MODL Voice ID: [id number] Report ID: [id number]
== END 2022-04-18 12:15 | disposition home or self-care (01) | DRG 806 ==
LOC: L&D 06:50 → 2ND-WC 07:57
PROVIDERS: ADMIT Obstetrics & Gynecology; ATTEND Obstetrics & Gynecology
PROC: 10E0XZZ Delivery of Products of Conception, External Approach (ICD-10-PCS; principal; 2022-04-16)
PROC: 10907ZC Drainage of Amniotic Fluid, Therapeutic from Products of Conception, Via Natural or Artificial Opening (ICD-10-PCS; 2022-04-16)
PROC: 0W8NXZZ Division of Female Perineum, External Approach (ICD-10-PCS; 2022-04-16)
PROC: 0UQMXZZ Repair Vulva, External Approach (ICD-10-PCS; 2022-04-16)
DX: O70.9 Perineal laceration during delivery, unspecified (principal); O36.0930 Maternal care for other rhesus isoimmunization, third trimester, not applicable or unspecified; Z37.0 Single live birth; Z3A.38 38 weeks gestation of pregnancy; Z20.822 Contact with and (suspected) exposure to COVID-19
CPT/HCPCS: 0241U; 36415; 81003; 85014; 85018; 85025; 86592; 86901; 87340; J2001; J2210; J2590; J3010; J7120

== ENCOUNTER → 2023-03-24 | Emergency (ER) | payer BC, OTHER ==
--- OUTSIDE RECORDS SUMMARY | 2023-03-24 09:21 | XMS REPORT | Continuity of Care Document ---
Author Name Unknown Address [address] [facility] [address] [place] [address] [facility] thconnect Address [address] [facility] [address] [place] [address] Care Team Providers Care Heavy Truck Technician Name Role Phone PCP, PATIENT DOES NOT HAVE A Primary Care Physic Mert Dorsey Attending Clinician Unavailable [email or web address]_S Attending Clinician OLYA Brown Attending Clinician OLYA Brown Attending Clinician Olamide Torres MD, Wade Norman Attending Clinician [phone] Marine Patton PA-C Attending Clinician [phone] Pob, Adc Lab Main Attending Clinician WADE Diaz Attending Clinician Unavailable Doctor Unassigned, Red Bud Attending Clinician U navailable [email or web address]_S Admitting Clinician Olamide martinez Payers Payer Name Policy Type Policy Number Effective Date Expirati on Date Source AETNA O [id number] 2015 00:00:00 [place] [id number] 2021 00:00:00 Problems Condition Name Condition Details Condition Category Status Onset Date Resolution Date Last Treatment Date Treating Clinician Comments Source High risk , antepartum High risk , antepartum Disease Active 09-10 00:00: 00 [facility] History of anxiety History of anxiety Disease Active 09-10 00:00: 00 [facility] History of depression History of depression Disease Active 09-10 00:00: 00 [facility] History of bipolar disorder History of bipolar disorder Disease Active 09-10 00:00: 00 [facility] Positive test Positive test Disease Active 09-04 00:00: 00 [facility] Allergies, Adverse Reactions, Alerts Allergy Name Allergy Type Status Severity Reaction(s) Onset Date Inactive Date Treating Clinician Comments Source NO KNOWN ALLERGIE S Drug Class Active [facility] Social History Social Habit Start Date Stop Date Quantity Comments Source ASSERTION 2021-08-05 00:00:00 [facility] Alcohol intake 2021-10-23 00:00:00 2021-10-23 00:00:00 Ex-drinker (finding) [facility] Exposure to SARS-CoV-2 (event) 2021-09-28 00:00:00 2021-10-08 09:55:00 Not sure [facility] Tobacco use and exposure 2021-09-04 00:00:00 2021-09-04 00:00:00 Smokeless tobacco non-user [facility] Sex Assigned At 2000 00:00:00 2000 00:00:00 [facility] Smoking Status Start Date Stop Date Source Never smoked tobacco [facility] Medications Ordered Medication Name Filled Medication Name Start Date Stop Date Current Medication? Ordering Clinician Indication Dosage Frequency Signature (SIG) Comments Components Source 25/iron fum/folic/d santana (-1 ORAL) 10-23 13:58: 04 Yes Take by mouth. [facility] miconazole 100 mg vaginal suppository 10-09 00:00: 00 10-17 04:59 :00 No [id number] 100mg Insert 1 Suppositor y into vagina at bedtime for 7 days. [facility] miconazole 100 mg vaginal suppository 10-09 00:00: 00 10-17 04:59 :00 No [id number] 100mg Insert 1 Suppositor y into vagina at bedtime for 7 days. [facility] metroNIDAZO LE (FLAGYL) 500 mg tablet 10-08 00:00: 00 10-16 04:59 :00 No [id number] 500mg Take 1 tablet by mouth 2 (two) times daily for 7 days. [facility] metroNIDAZO LE (FLAGYL) 500 mg tablet 10-08 00:00: 00 10-16 04:59 :00 No [id number] 500mg Take 1 tablet by mouth 2 (two) times daily for 7 days. [facility] metroNIDAZO LE (FLAGYL) 500 mg tablet 10-08 00:00: 00 10-16 04:59 :00 No [id number] 500mg Take 1 tablet by mouth 2 (two) times daily for 7 days. [facility] metroNIDAZO LE (FLAGYL) 500 mg tablet 10-08 00:00: 00 10-16 04:59 :00 No [id number] 500mg Take 1 tablet by mouth 2 (two) times daily for 7 days. [facility] metroNIDAZO LE (FLAGYL) 500 mg tablet 10-08 00:00: 00 10-16 04:59 :00 No [id number] 500mg Take 1 tablet by mouth 2 (two) times daily for 7 days. [facility] metroNIDAZO LE (FLAGYL) 500 mg tablet 10-08 00:00: 00 10-16 04:59 :00 No [id number] 500mg Take 1 tablet by mouth 2 (two) times daily for 7 days. [facility] vit no.130-iron -folic ( VITAMIN) 09-14 00:00: 00 Yes [id number] 1{tbl} Take 1 tablet by mouth daily. [facility] vit no.130-iron -folic ( VITAMIN) 09-14 00:00: 00 Yes [id number] 1{tbl} Take 1 tablet by mouth daily. [facility] vit no.130-iron -folic ( VITAMIN) 09-14 00:00: 00 Yes [id number] 1{tbl} Take 1 tablet by mouth daily. [facility] vit no.130-iron -folic ( VITAMIN) 09-14 00:00: 00 Yes [id number] 1{tbl} Take 1 tablet by mouth daily. [facility] vit no.130-iron -folic ( VITAMIN) 09-14 00:00: 00 Yes [id number] 1{tbl} Take 1 tablet by mouth daily. [facility] vit no.130-iron -folic ( VITAMIN) 09-14 00:00: 00 Yes [id number] 1{tbl} Take 1 tablet by mouth daily. [facility] vit no.130-iron -folic ( VITAMIN) 09-14 00:00: 00 Yes [id number] 1{tbl} Take 1 tablet by mouth daily. [facility] vit no.130-iron -folic ( VITAMIN) 09-14 00:00: 00 Yes [id number] 1{tbl} Take 1 tablet by mouth daily. [facility] 25/iron fum/folic/d santana (-1 ORAL) 6 09:17: 47 Yes Take by mouth. [facility] 25/iron fum/folic/d santana (-1 ORAL) 6 09:17: 47 Yes Take by mouth. [facility] 25/iron fum/folic/d santana (-1 ORAL) 6 09:17: 47 Yes Take by mouth. [facility] 25/iron fum/folic/d santana (-1 ORAL) 6 09:17: 47 Yes Take by mouth. [facility] 25/iron fum/folic/d santana (-1 ORAL) 609 09:17: 47 Yes Take by mouth. [facility] 25/iron fum/folic/d santana (-1 ORAL) 09-10 09:17: 47 Yes Take by mouth. [facility] 25/iron fum/folic/d santana (-1 ORAL) 09-10 09:17: 47 Yes Take by mouth. [facility] doxylamine- pyridoxine, vit B6, (DICLEGIS) 10-10 mg per tablet 09-10 00:00: 00 Yes [id number] 1{tbl} Take 1 tablet by mouth SEE-INSTRU CTIONS. [facility] doxylamine- pyridoxine, vit B6, (DICLEGIS) 10-10 mg per tablet 09-10 00:00: 00 Yes [id number] 1{tbl} Take 1 tablet by mouth SEE-INSTRU CTIONS. [facility] doxylamine- pyridoxine, vit B6, (DICLEGIS) 10-10 mg per tablet 09-10 00:00: 00 Yes [id number] 1{tbl} Take 1 tablet by mouth SEE-INSTRU CTIONS. [facility] doxylamine- pyridoxine, vit B6, (DICLEGIS) 10-10 mg per tablet 09-10 00:00: 00 Yes [id number] 1{tbl} Take 1 tablet by mouth SEE-INSTRU CTIONS. [facility] doxylamine- pyridoxine, vit B6, (DICLEGIS) 10-10 mg per tablet 09-10 00:00: 00 Yes [id number] 1{tbl} Take 1 tablet by mouth SEE-INSTRU CTIONS. [facility] doxylamine- pyridoxine, vit B6, (DICLEGIS) 10-10 mg per tablet 09-10 00:00: 00 Yes [id number] 1{tbl} Take 1 tablet by mouth SEE-INSTRU CTIONS. [facility] doxylamine- pyridoxine, vit B6, (DICLEGIS) 10-10 mg per tablet 09-10 00:00: 00 Yes [id number] 1{tbl} Take 1 tablet by mouth SEE-INSTRU CTIONS. [facility] doxylamine- pyridoxine, vit B6, (DICLEGIS) 10-10 mg per tablet 09-10 00:00: 00 Yes [id number] 1{tbl} Take 1 tablet by mouth SEE-INSTRU CTIONS. [facility] Vital Signs Vital Name Observation Time Observation Value Comments Sena pichardo Systolic blood pressure 2021-10-08 15:35:00 114 mm[Hg] [facility] Diastolic blood pressure 2021-10-08 15:35:00 75 mm[Hg] [facility] Heart rate 2021-10-08 15:35:00 107 /min [facility] Body temperature 2021-10-08 15:35:00 36.94 Yue [facility] Respiratory rate 2021-10-08 15:35:00 18 /min [facility] Body height 2021-10-08 15:35:00 [facility].9 [facility] Body weight 2021-10-08 15:35:00 44.815 [facility] BMI 2021-10-08 15:35:00 19.96 kg/m2 [facility] Procedures Procedure Date / Time Performed Performing Clinicia n Source POCT URINALYSIS W/O SPECIFIC GRAVITY 2021-10-08 00:00:00 Marine Patton [facility] Encounters Start Date/Time End Date/Time Encounter Type Admission Type Attending Clinicians Care Facility Care Department Encounter ID Source 2023-01-12 15:52:01 Outpatient Mert Ascencio [facility] [id number] [facility] 2021-01-31 05:54:24 Emergency [facility] [id number] [facility] 2023-01-21 00:00:00 2023-01-21 00:00:00 Outpatient GC_GCBZW_Ka diyala_S PRIV PRIV [id number] [facility] 2023-01-21 00:00:00 2023-01-21 00:00:00 Outpatient GC_GCBZW_Ka diyala_S PRIV PRIV [id number] [facility] 2023-01-21 00:00:00 2023-01-21 00:00:00 Outpatient GC_GCBZW_Ka diyala_S PRIV PRIV [id number] [facility] 2023-01-13 00:00:00 2023-01-13 00:00:00 Outpatient GC_GCBZW_Ka diyala_S PRIV PRIV [id number] [facility] 2023-01-13 00:00:00 2023-01-13 00:00:00 Outpatient GC_GCBZW_Ka diyala_S PRIV PRIV [id number] [facility] 2022-12-20 00:00:00 2022-12-20 00:00:00 Outpatient GC_GCBZW_Ka diyala_S PRIV PRIV [id number] [facility] 2021-11-06 09:30:00 2021-11-06 09:30:00 Outpatient R SILKESARA OLYA SILKESARA OLYA [facility] [id number] [facility] 2021-11-03 11:00:00 2021-11-03 11:00:00 Outpatient R OLYA FUNES OLYA [facility] [id number] [facility] 2021-10-26 00:00:00 2021-10-26 00:00:00 Telephone Juan Wade [facility] [id number] 350.1.13.10 4.2.7.2.686 [id number] [facility] 2021-10-22 00:00:00 2021-10-22 00:00:00 Telephone Wade Torres [facility] [id number] 350.1.13.10 4.2.7.2.686 [id number] [facility] 2021-10-15 00:00:00 2021-10-15 00:00:00 Telephone Marine Patton [facility] 1.840.114 350.1.13.10 4.2.7.2.686 [id number] [facility] 2021-10-09 08:45:00 2021-10-09 09:00:00 Wire Twisting Machine Operator Visit Tati, [facility] Main Wade Torres [facility] 1.284.114 350.1.13.10 4.2.7.2.686 [id number] [facility] 2021-10-09 08:45:00 2021-10-09 08:45:[address] [facility] [id number] [facility] 2021-10-09 08:45:00 2021-10-09 08:45:[address] [facility] [id number] [facility] 2021-10-09 00:00:00 2021-10-09 00:00:00 [facility] 1.84.114 350.1.13.10 4.2.7.2.686 [id number] [facility] 2021-10-09 00:00:00 2021-10-09 00:00:00 Case Management Marine Patton [facility] 1..114 350.1.13.10 4.2.7.2.686 [id number] [facility] 2021-10-08 11:45:00 2021-10-08 12:00:00 Wire Twisting Machine Operator Visit Tati, [facility]c [facility] Main Wade Torres [facility] 1.284.114 350.1.13.10 4.2.7.2.686 [id number] [facility] 2021-10-08 11:45:00 2021-10-08 11:45:00 Outpatient R WADE TORRES [facility] [id number] [facility] 2021-10-08 09:45:00 2021-10-08 11:27:27 Outpatient R WADE TORRES [facility] [id number] [facility] 2021-10-08 09:45:00 2021-10-08 11:27:27 Routine Visit Wade Torres [facility] [id number] 350.1.13.10 4.2.7.2.686 [id number] [facility] 2021-10-08 09:45:00 2021-10-08 11:27:27 Outpatient R WADE TORRES [facility] [id number] [facility] 2021-10-08 00:00:00 2021-10-08 00:00:00 Orders Only Doctor Unassigned, Red Bud [facility] 1..840.114 350.1.13.10 4.2.7.2.686 [id number] [facility] 2021-09-14 00:00:00 2021-09-14 00:00:00 Telephone [facility] 1.2.840.114 350.1.13.10 4.2.7.2.686 [id number] [facility] 2021-09-10 08:30:00 2021-09-10 09:55:48 Outpatient R WADE TORRES [facility] [id number] [facility] 2021-09-10 08:30:00 2021-09-10 09:55:48 Outpatient R WADE TORRES [facility] [id number] [facility] 2021-09-10 08:30:00 2021-09-10 09:55:48 Initial Visit Wade Torres [facility] 1.2.840.114 350.1.13.10 4.2.7.2.686 [id number] [facility] 2021-09-10 08:30:00 2021-09-10 08:30:00 Outpatient R WADE TORRES [facility] [id number] [facility] 2021-09-04 08:30:00 2021-09-04 09:23:29 Outpatient R OLYA FUNES CHERYAL [facility] [id number] [facility] 2021-09-04 08:30:00 2021-09-04 09:23:29 Outpatient R OLYA FUNES CHERYAL [facility] [id number] [facility] 2021-09-04 08:30:00 2021-09-04 09:23:29 Outpatient R OLYA FUNES CHERYAL [facility] [id number] [facility] 2021-09-04 08:30:00 2021-09-04 09:23:29 Office Visit Olya Funes [facility] [id number] 350.1.13.10 4.2.7.2.686 [id number] [facility] Results Test Description Test Time Test Comments Results Result Co mments Source [facility]
[2023-03-24 09:43] LABS: Absolute Lymphocytes (CBC) 1.8 K/uL (0.7-4.9); Hematocrit 38.5 % (36.0-45.0); MCV 93.3 fL (80-100); MPV 8.6 fL (7.6-11.3); Platelets 258 thou/uL (152-406); RBC Red Blood Cell Count 4.12 M/uL (3.86-4.86)
[2023-03-24 09:51] LABS: Protime INR 1.04
[2023-03-24 10:05] LABS: Albumin 3.6 g/dL (3.4-5.0); Bilirubin Direct 0.1 mg/dL (0-0.2); Bilirubin Indirect, Calculated 0.2 mg/dL (0.2-0.8); Bilirubin Total 0.3 mg/dL (0.2-1.0); Potassium 3.8 mEq/L (3.5-5.1); Protein, Total 7.1 g/dL (6.4-8.2)
--- NOTE | 2023-03-24 14:01 | ER ---
Nurse's Notes [facility] Name: Jamar Worley Age: 22 yrs Sex: Female : 2000 Arrival Date: 03/24/2023 Time: 09:17 Bed 17 Private MD: Diagnosis: Suicidal ideation;Intentional overdose of [place] Presentation: 03/24 09:19 Chief complaint: EMS states: Took 5 hydrocodone 5MG about 1 hour BEE TENDER. + ETOH. VSS. ll1 Coronavirus screen: Client denies travel out of the [place] in the last 14 days. At this time, the client does not indicate any symptoms associated with coronavirus-19. Ebola Screen: Patient denies travel to an Ebola-affected area in the 21 days before illness onset. Initial Sepsis Screen: Does the patient meet any 2 criteria? No. Patient's initial sepsis screen is negative. Does the patient have a suspected source of infection? No. Patient's initial sepsis screen is negative. Risk Assessment: Do you want to hurt yourself or someone else? Patient reports no desire to harm self or others. Onset of symptoms was March 24, 2023. 09:19 Method Of Arrival: EMS: [facility] 09:19 Acuity: MORGAN 2 ll1 Triage Assessment: 09:21 General: Appears uncomfortable, Behavior is calm, cooperative, appropriate for age. ll1 General: Reports depression. Took 5 [place] BEE TENDER. Pain: Denies pain. Neuro: No deficits noted. Cardiovascular: No deficits noted. 09:21 GI: Reports lower abdominal pain. ll1 Historical: - Allergies: 09:20 No Known Allergies; ll1 - PMHx: 09:20 Depressive disorder; ll1 - PSHx: 09:20 None; ll1 - Immunization history:: Adult Immunizations up to date. - Social history:: Smoking status: Patient denies any tobacco usage or history of. Smoking status: Reported history of juuling and/or vaping. Screenin:52 [facility] ED Fall Risk Assessment (Adult) History of falling in the last 3 months, bp including since admission No falls in past 3 months (0 pts). Abuse screen: Denies threats or abuse. Denies injuries from another. Nutritional screening: No deficits noted. Tuberculosis screening: No symptoms or risk factors identified. Assessment: 09:40 Reassessment: No changes from previously documented assessment. Belongings behind ll1 nurses station. Patient has cell phone. 10:00 Reassessment: RECD REPORT FROM WILLIAM BURGOS. 22YO HF P/W OD ON NON-LETHAL DOSE OF NORCO. bp UOP PENDING. 15:09 Reassessment: REPORT TO KARIN BURGOS AT [facility]. bp 15:30 Reassessment: REPORT TO VELMA BURGOS AT [facility]. bp 16:00 Reassessment: PT STATING SHE NO LONGER WISHES TO BE TRANSFERRED TO MD ANAYELI INFORMED. bp 16:21 Reassessment: [place] AT B/S FOR JENELLE. bp 18:07 Reassessment: PT NOW VOLUNTARY FOR [facility]. PROVIDED CLOTHING AND LUGGAGE BY VISITOR. 18:43 Reassessment: EMS AT B/S FOR TRANSPORT. bp Psych: 10:30 [place] Suicide Severity Screening: In the past month, have you wished you were bp or wished you could go to sleep and not wake up? Patient responds "yes." Based off the client's responses additional C-SSRS screening is required. "In the past month, have you actually had any thoughts of killing yourself?" Patient responds "yes." Based off the client's response additional [place] suicide severity screening questions to be further documented on paper forms. "In your lifetime, have you ever done anything, started to do anything, or prepared to do anything to end your life?" Patient responds "yes." Patient reports suicidal intent within 3 past months. Subjective: Patient's mood is sad, Delusions are denied, Hallucinations are denied Having thoughts of suicide. Plan for suicide is OVERDOSE. Objective: Patient is cooperative, Speech is normal, Affect is appropriate, Patient has mutilated themselves by DENIED. Interventions: Patient placed in hospital gown. Urine collected and sent for urine drug test. Belonging list filled out. Safety Checks: Personal items have been removed. Door is open. Visitors are present. Patient uses Patient uses cocaine, Patient uses marijuana. Commitment: Patient will be a voluntary commitment. Vital Signs: 09:20 BP 123 / 78; Pulse 66; Resp 17; Temp 98.1; Pulse Ox 100% ; Weight 45.36 kg; Height 4 ll1 ft. 9 in. ; Pain 2/10; 18:07 BP 117 / 75; Pulse 71; Resp 16; Pulse Ox 100% ; bp 09:20 Body Mass Index 21.64 (45.36 kg, 144.78 cm) ll1 09:20 Pain Scale: Adult ll1 ED Course: 09:18 Patient arrived in ED. ll1 09:19 Douglas Tobin MD is Attending Physician. rt 09:20 Triage completed. ll1 09:20 Arm band placed on Patient placed in an exam room, on a stretcher. ll1 09:28 Devon Bonilla RN is Primary Nurse. ll1 09:30 Inserted saline lock: 22 gauge in right antecubital area, using aseptic technique. ll1 Blood collected. 12:52 Patient has correct armband on for positive identification. Bed in low position. Call bp light in reach. 14:23 Pt clinical information faxed to Tiffany Michel. em1 15:38 Pt clinical information faxed to [facility]. em1 18:07 No provider procedures requiring assistance completed. IV discontinued, intact, bp bleeding controlled, No redness/swelling at site. Pressure dressing applied. 19:09 Primary Nurse role handed off by Devon Bonilla RN as6 19:20 Talha Malik, AUBREY is Primary Nurse. bp Administered Medications: No medications were administered Medication: 18:07 VIS not applicable for this client. bp Outcome: 14:01 ER care complete, transfer ordered by MD. rt 18:07 Transferred by ground EMS Transfer form completed. Note: [facility] bp 18:07 Condition: stable 18:07 Instructed on the need for transfer, 19:20 Patient left the ED. bp Signatures: Ahmet Lopez em1 Talha Malik RN RN bp Devon Bonilla RN RN ll1 Alen Mansfield RN RN as6 Douglas Tobin MD MD rt Corrections: (The following items were deleted from the chart) 09:22 09:20 BP 123 / 78; Pulse 66bpm; Resp 17bpm; Pulse Ox 100%; ll1 ll1 09:26 09:20 BP 123 / 78; Pulse 66bpm; Resp 17bpm; Pulse Ox 100%; Temp 98.1F; ll1 ll1 09:26 09:21 Cardiovascular: No deficits noted. ll1 ll1
--- NOTE | 2023-03-24 14:01 | EDPHYS ---
Physician Documentation [facility] Name: Jamar Worley Age: 22 yrs Sex: Female : 2000 Arrival Date: 03/24/2023 Time: 09:17 Bed 17 Private MD: ED Physician Douglas Tobin HPI: 03/24 09:28 This 22 yrs old Female presents to ER via EMS with complaints of Depression, rt Possible Overdose. 09:28 Patient presents to the ED with suicidal ideation, possible overdose. Patient rt reportedly took about 5 hydrocodone's about 1 hour ago. She states that she is having suicidal thoughts. Denies physical complaints this time, symptoms are moderate severity, no other aggravating relieving factors.. Historical: - Allergies: 09:20 No Known Allergies; ll1 - PMHx: 09:20 Depressive disorder; ll1 - PSHx: :20 None; ll1 - Immunization history:: Adult Immunizations up to date. - Social history:: Smoking status: Patient denies any tobacco usage or history of. Smoking status: Reported history of juuling and/or vaping. ROS: 09:28 Constitutional: Negative for fever, chills, and weight loss, Cardiovascular: Negative rt for chest pain, palpitations, and edema, Respiratory: Negative for shortness of breath, cough, wheezing, and pleuritic chest pain, Abdomen/GI: Negative for abdominal pain, nausea, vomiting, diarrhea, and constipation, MS/Extremity: Negative for injury and deformity, Skin: Negative for injury, rash, and discoloration, Neuro: Negative for headache, weakness, numbness, tingling, and seizure, 09:28 Psych: Positive for depression, suicide gesture, suicidal ideation, Exam: 09:28 Constitutional: This is a well developed, well nourished patient who is awake, alert, rt and in no acute distress. Head/Face: Normocephalic, atraumatic. Chest/axilla: Normal chest wall appearance and motion. Nontender with no deformity. No lesions are appreciated. Cardiovascular: Regular rate and rhythm with a normal S1 and S2. No gallops, murmurs, or rubs. Normal PMI, no JVD. No pulse deficits. Respiratory: Lungs have equal breath sounds bilaterally, clear to auscultation and percussion. No rales, rhonchi or wheezes noted. No increased work of breathing, no retractions or nasal flaring. Abdomen/GI: Soft, non-tender, with normal bowel sounds. No distension or tympany. No guarding or rebound. No evidence of tenderness throughout. Skin: Warm, dry with normal turgor. Normal color with no rashes, no lesions, and no evidence of cellulitis. MS/ Extremity: Pulses equal, no cyanosis. Neurovascular intact. Full, normal range of motion. Neuro: Awake and alert, GCS 15, oriented to person, place, time, and situation. Cranial nerves II-XII grossly intact. Motor strength 5/5 in all extremities. Sensory grossly intact. Cerebellar exam normal. Normal gait. 09:28 Psych: Mood depressed, affect congruent, reports suicidal ideation. 13:58 ECG was reviewed by the Attending Physician. rt Vital Signs: 09:20 BP 123 / 78; Pulse 66; Resp 17; Temp 98.1; Pulse Ox 100% ; Weight 45.36 kg; Height 4 ll1 ft. 9 in. ; Pain 2/10; 18:07 BP 117 / 75; Pulse 71; Resp 16; Pulse Ox 100% ; bp 09:20 Body Mass Index 21.64 (45.36 kg, 144.78 cm) ll1 09:20 Pain Scale: Adult ll1 MDM: 09:22 Patient medically screened. rt 13:58 Differential diagnosis: Suicidal ideation, intentional opiate overdose, intentional rt acetaminophen overdose. Data reviewed: vital signs, nurses notes, lab test result(s), EKG. Consideration of Admission/Observation Patient requires transfer for psychiatric care. Care significantly affected by the following chronic conditions: MDD. Counseling: I had a detailed discussion with the patient and/or guardian regarding the historical points, exam findings, and any diagnostic results supporting the discharge/admit diagnosis, lab results, the need to transfer to another facility, [facility] does not immediately have the required specialist. 03/24 09: Order name: Acetaminophen; Complete Time: 12:20 rt 03/24 09:26 Order name: Basic Metabolic Panel; Complete Time: 12:20 rt 03/24 09:26 Order name: CBC with Diff; Complete Time: 12:20 rt 03/24 09: Order name: ETOH Level; Complete Time: 12:20 rt 03/24 09:26 Order name: Hepatic Function; Complete Time: 12:20 rt 03/24 09:26 Order name: PT-INR; Complete Time: 12:20 rt 03/24 09:26 Order name: Test, Urine; Complete Time: 16:12 rt 03/24 09:26 Order name: Ptt, Activated; Complete Time: 12:20 rt 03/24 09:26 Order name: Salicylate; Complete Time: 12:20 rt 03/24 09:26 Order name: Urinalysis w/ reflexes; Complete Time: 16:12 rt 03/24 09:26 Order name: Urine Drug Screen; Complete Time: 16:12 rt 03/24 09:26 Order name: Acetaminophen: To be drawn at 1230 rt 03/24 12:53 Order name: Acetaminophen; Complete Time: 13:52 bp 03/24 14:51 Order name: SARS RAPID; Complete Time: 16:12 bp 03/24 09:26 Order name: EKG; Complete Time: 09:27 rt 03/24 09:26 Order name: EKG - Nurse/Tech; Complete Time: 09:38 rt 03/24 09:26 Order name: IV Saline Lock; Complete Time: 09:28 rt 03/24 09:26 Order name: Labs collected and sent; Complete Time: 09:28 rt 03/24 09:26 Order name: Suicide Precautions; Complete Time: 09:38 rt 03/24 09:26 Order name: Suicide Screening ([place]); Complete Time: 09:38 rt EC:58 Rate is 79 beats/min. Rhythm is regular, Normal Sinus Rhythm with No ectopy. QRS [place] rt is Normal. MD interval is normal. QRS interval is normal. QT interval is normal. No Q waves. T waves are Normal. No ST changes noted. Interpreted by me. Administered Medications: No medications were administered Disposition Summary: 03/24/23 14:01 Transfer Ordered Notes: Transfer Location: Psych Facility rt Reason: Higher level of care rt Condition: Stable rt Problem: new rt Symptoms: are unchanged rt Accepting Physician: (03/24/23 19:20) bp Diagnosis - Suicidal ideation rt - Intentional overdose of [place] rt Discharge Instructions: - Discharge Summary Sheet em1 Forms: - Medication Reconciliation Form em1 - SBAR form em1 Signatures: Dispatcher [employer] EDTalha Hartman RN RN Devon Brown RN RN ll1 Douglas Tobin MD MD rt Corrections: (The following items were deleted from the chart) 19:20 14:01 rt bp
[2023-03-24 15:20] LABS: Specific Gravity 1.022 (1.005-1.030)
[2023-03-24 15:28] LABS: SARS-CoV-2 Antigen Rapid Res Negative (Negative)
[2023-03-24 15:38] LABS: Barbiturates NEGATIVE (NEGATIVE); Benzodiazepines NEGATIVE (NEGATIVE); Cocaine POSITIVE (NEGATIVE); METHAMPHETAM NEGATIVE (NEGATIVE); Methadone NEGATIVE (NEGATIVE); Opiates POSITIVE (NEGATIVE); Phencyclidine NEGATIVE (NEGATIVE); THC Cannibis POSITIVE (NEGATIVE)
[2023-03-24 15:55] LABS: Specific Gravity 1.023 (1.005-1.030); Urine Bilirubin NEGATIVE (Negative); Urine Blood Negative (Negative); Urine Clarity Clear (Clear); Urine Color Light-Yellow (Yellow); Urine Glucose NEGATIVE (Negative); Urine Protein NEGATIVE (Negative); Urine Urobilinogen Normal (Normal)
[2023-03-24 22:04] VITALS: TEMP 98.1; O2SAT 100
[2023-03-24 22:10] VITALS: BP 117/75
--- NOTE | 2023-03-25 15:09 | EKG ---
Test Date: 2023-03-24 Test Time: 09:40:50 [place]: GABINO MEASUREMENT RESULTS: Intervals: Rate: 79 WV: 134 QRSD: 88 QT: 372 QTc: 426 Pool: P: 57 WV: 134 QRS: 74 T: 55 INTERPRETIVE STATEMENTS: Normal sinus rhythm with sinus arrhythmia Normal ECG No previous ECG available for comparison Electronically Signed On 03-25-23 15:07:49 [employer] by Roberto Elizabeth
== END ==
LOC: ER 09:17
DX: T40.2X2A Poisoning by other opioids, intentional self-harm, initial encounter (principal); F32.A Depression, unspecified; Z11.52 Encounter for screening for COVID-19
CPT/HCPCS: 36415; 80048; 80076; 80143; 80179; 80307; 81003; 81025; 82077; 85025; 85610; 85730; 87811; 93005; 99285